=== PATIENT | female | born 1940 | race Two or more races ===

== ENCOUNTER 2018-12-25 14:07 | Inpatient (IN) | payer MEDICARE, OTHER ==
[~2018-12-25] VITALS: Ht 157.5 cm; Wt 67.6 kg
--- NOTE | 2018-12-25 14:30 | NUR ---
Medical clearance for Psych admission. PT IS AWAKE, AMB WITH WALKER, VSS, RR EVEN AND UNLABORED. NO ACUTE DISTRESS NOTED. HX LIMITED D/T PT BEING NON-VERBAL. UNDERSTANDS ALGERIAN ONLY. SHE IS ABLE TO MOVE HEAD FOR YES/NO, AND POINT. READY FOR EVAL.
--- NOTE | 2018-12-25 14:38 | NUR ---
XRAY AT BEDSIDE
[2018-12-25 14:48] LABS: BASOPHILS % (AUTO) 0.4 % (0.0-2.0); EOSINOPHILS % (AUTO) 0.8 % (0.0-6.0); HEMATOCRIT 39 % (33-45); HEMOGLOBIN 13.2 g/dL (11.5-14.8); LYMPHOCYTES # (AUTO) 1.9 /CMM (0.8-4.8); LYMPHOCYTES % (AUTO) 27.8 % (20.0-44.0); MEAN CORPUSCULAR HGB CONC 34 g/dl (31.0-36.0); MEAN CORPUSCULAR VOLUME 88 fL (82-100); MONOCYTES # (AUTO) 0.4 /CMM (0.1-1.30); MONOCYTES % (AUTO) 5.9 % (2.0-12.0); NEUTROPHILS # (AUTO) 4.4 /CMM (1.8-8.9); NEUTROPHILS % (AUTO) 65.1 % (43.0-81.0); PLATELET COUNT (AUTO) 155 /CMM (150-450); RED BLOOD CELL COUNT(AUTO) 4.46 MIL/uL (4.0-5.2); WHITE BLOOD COUNT (AUTO) 6.7 K/uL (4.3-11.0)
--- NOTE | 2018-12-25 14:58 | NUR ---
URINE OBTAINED VIA STRAIGHT CATH AND SENT TO STAT LAB
[2018-12-25 15:02] LABS: CALCIUM, SERUM 9.1 mg/dL (8.5-10.1); CARBON DIOXIDE 25 mmol/L (21-32); CHLORIDE 105 mmol/L (98-107); CREATININE 0.7 mg/dL (0.6-1.3); GLUCOSE 96 mg/dL (74-106); POTASSIUM 4.2 mmol/L (3.5-5.1); SODIUM SERUM 139 mmol/L (136-145); UREA NITROGEN, BLOOD 13 mg/dL (7-18)
[2018-12-25 15:03] LABS: APPEARANCE,URINE Clear (CLEAR); BILIRUBIN,URINE Negative (NEGATIVE); BLOOD, URINE Negative Ery/uL (NEGATIVE); COLOR,URINE Yellow (YELLOW); KETONES,URINE Negative (NEGATIVE); LEUKOCYTE ESTERASE ,URINE Small (NEGATIVE); NITRITE, URINE Negative (NEGATIVE); PH,URINE 6.5 (5.0-8.0); PROTEIN,URINE Negative (NEGATIVE); UGLUCOSE Negative (NEGATIVE); UROBILINOGEN,URINE 0.2 EU/dL (0.2)
[2018-12-25 15:08] LABS: ALANINE AMINOTRANSFERASE 41 U/L (12-78); ALBUMIN 3.8 g/dL (3.4-5.0); ALCOHOL, BLOOD < 3 mg/dL (0-0); ALKALINE PHOSPHATASE 165 U/L (46-116); ASPARTATE AMINOTRANSFERASE 19 U/L (15-37); BILIRUBIN,DIRECT 0.1 mg/dL (0.0-0.2); BILIRUBIN,TOTAL 0.6 mg/dL (0.2-1.0); TOTAL PROTEIN, SERUM 7.1 g/dL (6.4-8.2)
[2018-12-25 15:12] LABS: ACETAMINOPHEN < 10 ug/ml (10-30); SALICYLATE 1.5 mg/dL (2.8-20.0)
[2018-12-25 15:16] LABS: BACTERIA,URINE Few /HPF (None Seen); RBC,URINE 0-2 /HPF (0-2); SQUAMOUS EPITHELIAL CELL,UR Few /HPF (None Seen)
--- NOTE | 2018-12-25 15:41 | NUR ---
PT NOW VERBAL, ASKING FOR FOOD. OK PER DR TIRADO. CAN SPEAK A LITTLE KYRGYZ
--- NOTE | 2018-12-25 16:46 | NUR ---
PT APPEARS AGITATED, CONTINUES TO YELL. ATTEMPTS TO CALM HER ARE SOMEWHAT SUCCESSFUL.
--- NOTE | 2018-12-25 18:21 | NUR ---
report given to SOLE Amezcua
[2018-12-25] MEDS ORDERED: [UNRECOGNIZED DRUG - OTHER] (18:26)
[2018-12-25] MEDS ORDERED: QUET200T PO (18:26)
[2018-12-25] MEDS ORDERED: ATOR20TA PO (18:26)
[2018-12-25] MEDS ORDERED: LISI-607 PO (18:26)
[2018-12-25] MEDS ORDERED: MIRT15TA7 PO (18:26)
[2018-12-25] MEDS ORDERED: LORA2TAB PO (18:26)
[2018-12-25] MEDS ORDERED: ZOLP10TA6 PO (18:26)
[2018-12-25] MEDS ORDERED: METO25TA6 PO (18:26)
[2018-12-25] MEDS ORDERED: METF-440 PO (18:26)
--- NOTE | 2018-12-25 18:36 | NUR ---
[facility]
[2018-12-25] MEDS ORDERED: MAG HYDROX/AL HYDROX/SIMETH 30 ML UDC PO PRN (19:00)
[2018-12-25] MEDS ORDERED: MAGNESIUM HYDROXIDE 30 ML UDC PO PRN (19:00)
[2018-12-25] MEDS ORDERED: ACETAMINOPHEN 325 MG TABLET PO PRN (19:00)
--- NOTE | 2018-12-25 19:00 | NUR ---
ADMITTED THIS 78 YEARS OLD FEMALE FROM [facility] PATIENT WAS PUT ON 5150 HOLD DUE TO DANGERS TO OTHERS, PATIENT IS ALERT, ORIENTED X 1-2 DENIES ANY PAIN OR DISCOMFORT AT THIS TIME, SKIN ASSESSMENT IS DONE SKIN IS INTACT, NO OPEN WOUND NOTED PATIENT IS AMBULATORY TO BATHROOM WITH ASSIST ADVISEMENT SERVE TO THE PATIENT PATIENT REFUSED TO SIGN THE CONSENT PAPER WILL CONTINUES TO MAKE ROUND EVERY 15 MINS AND MONITOR THE PATIENT FOR SAFETY AND FALL
--- NOTE | 2018-12-25 19:02 | NUR ---
RN-CO: Dr Solano gave admitting orders for the patient.
[2018-12-25 20:00] VITALS: BP 124/101
[2018-12-25] MEDS: TEMAZEPAM 7.5 MG CAPSULE PO PRN (22:02)
[2018-12-25] MEDS: ATORVASTATIN 10 MG TABLET PO SCH (22:02)
[2018-12-26] MEDS ORDERED: INSULIN REGULAR, HUMAN 100 UNIT/ML 3 ML VIAL SQ PRN (03:30)
[2018-12-26] MEDS ORDERED: DEXTROSE 50%-WATER 50 ML DISP.SYRIN IV PRN (03:30)
[2018-12-26] MEDS ORDERED: BLOOD SUGAR DIAGNOSTIC 1 EACH STRIP IN SCH (07:30)
[2018-12-26 07:44] LABS: ALANINE AMINOTRANSFERASE 36 U/L (12-78); ALBUMIN 3.7 g/dL (3.4-5.0); ALKALINE PHOSPHATASE 164 U/L (46-116); ASPARTATE AMINOTRANSFERASE 18 U/L (15-37); BILIRUBIN,TOTAL 0.6 mg/dL (0.2-1.0); CARBON DIOXIDE 24 mmol/L (21-32); CHLORIDE 103 mmol/L (98-107); CREATININE 0.7 mg/dL (0.6-1.3); GLUCOSE 92 mg/dL (74-106); POTASSIUM 4.3 mmol/L (3.5-5.1); SODIUM SERUM 138 mmol/L (136-145); TOTAL PROTEIN, SERUM 7.2 g/dL (6.4-8.2); UREA NITROGEN, BLOOD 16 mg/dL (7-18)
[2018-12-26 07:45] LABS: CHOLESTEROL 103 mg/dL (<200); HDL CHOLESTEROL 37 mg/dL (40-60); LDL 59 mg/dL (0-99); TRIGLYCERIDES 72 mg/dL (30-150)
[2018-12-26 08:00] VITALS: BP 120/71
[2018-12-26] MEDS: METFORMIN 500 MG TABLET PO SCH ×2 (08:44→16:13)
[2018-12-26] MEDS: LISINOPRIL (5MG) 5 MG TABLET PO SCH (08:44)
[2018-12-26] MEDS: METOPROLOL TARTRATE 25 MG TABLET PO SCH ×2 (08:45→16:13)
[2018-12-26] MEDS ORDERED: MIRTAZAPINE 15 MG TABLET PO SCH (09:00)
[2018-12-26] MEDS ORDERED: CEPHALEXIN MONOHYDRATE 500 MG CAPSULE PO SCH (09:00)
[2018-12-26] MEDS ORDERED: ZOLPIDEM TARTRATE 10 MG TABLET PO SCH (09:00)
--- NOTE | 2018-12-26 11:48 | NUR ---
GPS RN NOTE: T.O. DR BROWN ORDER TO DC [facility] , ACCU CHECK ACB ONLY, ORDER PLACED AND CARED OUT.
--- NOTE | 2018-12-26 13:39 | NUR ---
SW attempted to contact pts son Sam [phone] to discuss discharge planning and collateral information. SW left voicemail for callback.
--- NOTE | 2018-12-26 13:40 | NUR ---
ISMA contacted [facility] Address: [address] [place] [address] and spoke with Dereck, store administrator who stated pt will not be able to return to the facility as pt was taken off the assisted living waiver due to frequent hospitalizations in the last year.
--- NOTE | 2018-12-26 14:03 | NUR ---
INITIAL DISCHARGE PLAN: Pt needs placement. ISMA contacted [facility] Address: [address] [place] [address] and spoke with Dereck, billing administrator who stated pt will not be able to return to the facility as pt was taken off the assisted living waiver due to frequent hospitalizations in the last year. ISMA will help form a safe and proper discharge in collaboration with .
[2018-12-26 16:00] VITALS: BP 113/55
[2018-12-26] MEDS: QUETIAPINE FUMARATE 100 MG TABLET PO SCH (17:19)
[2018-12-26 20:39] VITALS: BP 106/50
[2018-12-26] MEDS: MIRTAZAPINE 15 MG TABLET PO SCH (21:23)
[2018-12-26] MEDS: ATORVASTATIN 10 MG TABLET PO SCH (21:23)
[2018-12-26] MEDS ORDERED: ZOLPIDEM TARTRATE 10 MG TABLET PO PRN (22:00)
[2018-12-26] MEDS: TEMAZEPAM 7.5 MG CAPSULE PO PRN (22:14)
[2018-12-26 22:30] VITALS: BP 108/62
[2018-12-27] MEDS: BLOOD SUGAR DIAGNOSTIC 1 EACH STRIP IN SCH (07:37)
[2018-12-27 08:00] VITALS: BP 134/69
[2018-12-27] MEDS: METFORMIN 500 MG TABLET PO SCH ×2 (08:11→17:00)
[2018-12-27] MEDS: QUETIAPINE FUMARATE 100 MG TABLET PO SCH ×3 (08:11→17:00)
[2018-12-27] MEDS: LISINOPRIL (5MG) 5 MG TABLET PO SCH (08:11)
[2018-12-27] MEDS: METOPROLOL TARTRATE 25 MG TABLET PO SCH ×2 (08:11→18:00)
[2018-12-27] MEDS: LORAZEPAM 0.5 MG TABLET PO PRN ×2 (11:39→19:57)
[2018-12-27] MEDS ORDERED: LORAZEPAM INJ 2 MG/ML VIAL IM STA (13:32)
[2018-12-27] MEDS ORDERED: OLANZAPINE 10 MG VIAL IM STA (13:32)
[2018-12-27 16:00] VITALS: BP 106/57
[2018-12-27 19:52] VITALS: BP 110/60
--- NOTE | 2018-12-27 19:59 | NUR ---
GPS RN NOTES: PT. YELLING SCREAMING , NOT FOLLOWING ANY REDIRECTIONS ATIVAN 0.5 MG PO PRN GIVEN , WILL CONTINUE TO MONITOR.
[2018-12-27] MEDS: ATORVASTATIN 10 MG TABLET PO SCH (21:04)
[2018-12-27] MEDS: DIVALPROEX SODIUM 250 MG TABLET.DR PO SCH (21:04)
[2018-12-27] MEDS: MIRTAZAPINE 15 MG TABLET PO SCH (21:04)
[2018-12-27] MEDS: TEMAZEPAM 7.5 MG CAPSULE PO PRN (23:08)
[2018-12-28] MEDS: BLOOD SUGAR DIAGNOSTIC 1 EACH STRIP IN SCH (07:36)
[2018-12-28 08:00] VITALS: BP 94/71
[2018-12-28] MEDS: DIVALPROEX SODIUM 250 MG TABLET.DR PO SCH ×2 (08:33→21:19)
[2018-12-28] MEDS: LORAZEPAM 0.5 MG TABLET PO PRN ×2 (08:33→14:48)
[2018-12-28] MEDS: QUETIAPINE FUMARATE 100 MG TABLET PO SCH ×3 (08:34→17:10)
[2018-12-28] MEDS: LISINOPRIL (5MG) 5 MG TABLET PO SCH (08:35)
[2018-12-28] MEDS: METFORMIN 500 MG TABLET PO SCH ×2 (08:35→17:10)
[2018-12-28] MEDS: METOPROLOL TARTRATE 25 MG TABLET PO SCH ×2 (08:36→17:00)
--- NOTE | 2018-12-28 09:02 | NUR ---
SW attempted to contact pts son Sam [phone] to discuss discharge planning and collateral information. SW left voicemail for callback.
--- NOTE | 2018-12-28 14:49 | NUR ---
rn note: patient is anxious. prn ativan given.
--- NOTE | 2018-12-28 15:45 | NUR ---
ISMA received a phone call from pts owen Vargas [phone] and discussed discharge plan. ISMA informed son that [facility] was not accepting pt back. Son was aware and stated he wanted ISMA to collaborate with a child welfare caseworker at [facility] for placement. Son sated he would call ISMA tomorrow Tuesday12/29/18 to provide her with contact number.
[2018-12-28 16:00] VITALS: BP 104/60
[2018-12-28 20:00] VITALS: BP 130/59
[2018-12-28] MEDS: MIRTAZAPINE 15 MG TABLET PO SCH (21:18)
[2018-12-28] MEDS: ATORVASTATIN 10 MG TABLET PO SCH (21:18)
[2018-12-29 08:00] VITALS: BP 132/70
[2018-12-29] MEDS: BLOOD SUGAR DIAGNOSTIC 1 EACH STRIP IN SCH (08:45)
[2018-12-29] MEDS: LISINOPRIL (5MG) 5 MG TABLET PO SCH (08:46)
[2018-12-29] MEDS: LORAZEPAM 0.5 MG TABLET PO PRN ×2 (08:46→16:14)
[2018-12-29] MEDS: QUETIAPINE FUMARATE 100 MG TABLET PO SCH ×3 (08:46→16:14)
[2018-12-29] MEDS: METFORMIN 500 MG TABLET PO SCH ×2 (08:46→16:14)
[2018-12-29] MEDS: DIVALPROEX SODIUM 250 MG TABLET.DR PO SCH ×2 (08:46→20:40)
[2018-12-29] MEDS: METOPROLOL TARTRATE 25 MG TABLET PO SCH ×2 (08:47→16:15)
--- NOTE | 2018-12-29 09:52 | NUR ---
ISMA spoke with pts son Sam [phone] regarding placement options. Per son he wishes for pt to be discharged to a locked SNF in [facility] and surrounding areas. He also provided ISMA with the contact number for pts previous SW at [facility]: Nikole [phone]. ISMA will contact Nikole to request list of locked SNF's in that area.
--- NOTE | 2018-12-29 10:00 | NUR ---
ISMA contacted Nikole [phone], ISMA at [facility] and discussed placement options for pt. Nikole informed SW that pt is part of the [facility] program and directed SW to speak with pts SW Seferino Wick [phone]. Nikole explained that pt was placed on an assisted living waiver. ISMA informed her that she was notified by Lottie Deng that pt was no longer on that waiver due to her frequent hospitalizations. Nikole asked ISMA to speak with Seferino Wick as he is more familiarized with pts placement situation.
--- NOTE | 2018-12-29 10:03 | NUR ---
ISMA contacted Seferino Wick [phone] ISMA at [facility] and left voicemail requesting callback to discuss placement options for pt. ISMA informed him that pt is currently on a hold at [facility] and cannot return to [facility] due to being taken off the assisted living waiver.
--- NOTE | 2018-12-29 12:24 | NUR ---
ISMA received a phone call from Seferino Wick [phone] SW at [facility] stating he no longer works with the family and confirmed that pts assisted living waiver is no longer valid. Seferino stated that he spoke with pts son to inform him that pt will need to be placed at locked SNF. Seferino provided SW with the name of [facility] Address: [address] [place] [address] where pt may be able to be discharged to. ISMA will fax referral to [facility].
--- NOTE | 2018-12-29 12:30 | NUR ---
GPS/RN PT REFUSED ACCUCHECK FOR 1200 OFFERED X3
[2018-12-29 16:00] VITALS: BP 107/59
--- NOTE | 2018-12-29 17:40 | NUR ---
GPS/RN PT REFUSED ACCUCHECK FOR 1730 OFFERED X3
[2018-12-29 20:00] VITALS: BP 109/56
[2018-12-29] MEDS: ATORVASTATIN 10 MG TABLET PO SCH (21:00)
[2018-12-29] MEDS: MIRTAZAPINE 15 MG TABLET PO SCH (21:00)
[2018-12-30 08:00] VITALS: BP 109/59
[2018-12-30] MEDS: METOPROLOL TARTRATE 25 MG TABLET PO SCH ×2 (08:48→17:21)
[2018-12-30] MEDS: QUETIAPINE FUMARATE 100 MG TABLET PO SCH ×3 (08:48→17:20)
[2018-12-30] MEDS: BLOOD SUGAR DIAGNOSTIC 1 EACH STRIP IN SCH (08:48)
[2018-12-30] MEDS: METFORMIN 500 MG TABLET PO SCH ×2 (08:48→17:20)
[2018-12-30] MEDS: DIVALPROEX SODIUM 250 MG TABLET.DR PO SCH ×2 (08:48→21:08)
[2018-12-30] MEDS: LISINOPRIL (5MG) 5 MG TABLET PO SCH (08:49)
[2018-12-30 16:00] VITALS: BP 121/60
[2018-12-30 20:00] VITALS: BP 123/64
[2018-12-30] MEDS: MIRTAZAPINE 15 MG TABLET PO SCH (21:08)
[2018-12-30] MEDS: ATORVASTATIN 10 MG TABLET PO SCH (21:09)
[2018-12-30] MEDS: TEMAZEPAM 7.5 MG CAPSULE PO PRN (23:23)
[2018-12-31] MEDS: BLOOD SUGAR DIAGNOSTIC 1 EACH STRIP IN SCH ×2 (07:30)
--- NOTE | 2018-12-31 07:45 | NUR ---
GPS/RN GPS/RN PT REFUSED ACCUCHECK OFFERED X3. PER SITTER 1:1(KATHRYN DORADO) PT CALLED HER NAMES USING FOUL LANGUAGE
[2018-12-31 08:00] VITALS: BP 100/50
[2018-12-31] MEDS: LISINOPRIL (5MG) 5 MG TABLET PO SCH (08:34)
[2018-12-31] MEDS: METOPROLOL TARTRATE 25 MG TABLET PO SCH ×2 (08:34→17:08)
[2018-12-31] MEDS: DIVALPROEX SODIUM 250 MG TABLET.DR PO SCH ×2 (08:35→21:50)
[2018-12-31] MEDS: QUETIAPINE FUMARATE 100 MG TABLET PO SCH ×3 (08:35→17:08)
[2018-12-31] MEDS: METFORMIN 500 MG TABLET PO SCH ×2 (08:35→17:07)
[2018-12-31 16:00] VITALS: BP 122/58
[2018-12-31 20:00] VITALS: BP 150/73
[2018-12-31] MEDS: ATORVASTATIN 10 MG TABLET PO SCH (21:50)
[2018-12-31] MEDS: MIRTAZAPINE 15 MG TABLET PO SCH (21:50)
[2018-12-31] MEDS: TEMAZEPAM 7.5 MG CAPSULE PO PRN (22:41)
[2019-01-01] MEDS: BLOOD SUGAR DIAGNOSTIC 1 EACH STRIP IN SCH ×2 (07:30→08:27)
[2019-01-01 08:00] VITALS: BP 101/53
[2019-01-01] MEDS: DIVALPROEX SODIUM 250 MG TABLET.DR PO SCH ×2 (08:30→16:17)
[2019-01-01] MEDS: METFORMIN 500 MG TABLET PO SCH ×2 (08:31→16:17)
[2019-01-01] MEDS: QUETIAPINE FUMARATE 100 MG TABLET PO SCH ×3 (08:31→16:17)
[2019-01-01] MEDS: METOPROLOL TARTRATE 25 MG TABLET PO SCH ×2 (08:32→16:17)
[2019-01-01] MEDS: LISINOPRIL (5MG) 5 MG TABLET PO SCH (08:32)
--- NOTE | 2019-01-01 10:33 | NUR ---
ISMA faxed SNF referral to Carole, household coordinator at [facility] Address: [address] [place] [address] for review.
--- NOTE | 2019-01-01 10:33 | NUR ---
ISMA faxed SNF referral to Kristal, injury prevention coordinator at [facility] Address: [address] [place] [phone] for review.
--- NOTE | 2019-01-01 10:34 | NUR ---
ISMA faxed SNF referral to Sneha, services coordinator at [facility] Address: [address] [place] [address] for review.
--- NOTE | 2019-01-01 11:33 | NUR ---
SW received a phone call from Kristal, human resources benefits coordinator at [facility] Address: [address] [place] [phone] stating she will be coming on Tuesday01/02/19 to evaluate pt.
--- NOTE | 2019-01-01 11:37 | NUR ---
CHARGE NURSE DEREK INFORMED ME THAT PT WILL BE TRANSFERRED TO ROOM 204-B GPS OVERFLOW
--- NOTE | 2019-01-01 12:00 | NUR ---
MS OBSTETRICS GYNECOLOGY MD NOTE RECEIVED PT FROM GPS, ACCOMPANIED BY SOLE ALONZO. PT IS ALERT AND ORIENTED X3-4, PRIMARILY PANAMANIAN SPEAKING BUT ABLE TO MAKE BASIC NEEDS KNOWN VIA JAPANESE. PT DENIES CHEST PAIN, SOB, N/V, CHEST PAIN. PT DENIES SI AND AUDITORY HALLUCINATIONS. PT STATES SHE HAS INTERMITTENT VISUAL HALLUCINATIONS OF A "PERSON WHO WANT'S TO KILL". SHE DECLINED TO GIVE FURTHER DETAILS BUT DENIES FEELINGS OF WANT TO HARM HERSELF OR OTHERS AT THIS TIME. PT IS ON A 5250 HOLD THAT EXPIRES ON 01/11/2019 AND HAS A 1:1 SITTER PRESENT AT THE BEDSIDE. Q15 SAFETY CHECKS INITIATED PER PROTOCOL. PT IS REQUESTING TO SPEAK TO ART GALLERY DIRECTOR NISSA. WILL CALL SHORTLY. ALL BELONGINGS ACCOUNTED FOR AND PLACED IN SECURE, LOCKED CLOSET PER PROTOCOL. PT DOES HAVE A WALKER AT THE BEDSIDE FOR AMBULATION. PT DOES NOT HAVE IV ACCESS PER GPS PROTOCOL. ALL NEEDS ATTENDED TO. UNIT ORIENTATION PROVIDED INCLUDING USE OF CALL SYSTEM. BED IS LOCKED AND IN LOWEST POSITION, SIDE RAILS UP X2, CALL LIGHT AND POSSESSIONS WITHIN REACH.
--- NOTE | 2019-01-01 12:00 | NUR ---
PT TRANSFERRED TO MS2 ROOM 205 BED 1 GPS OVERFLOW WITH REPORT GIVEN TO BROCK WHIPPLE AT THIS TIME
--- NOTE | 2019-01-01 12:15 | NUR ---
MS RN CHART PATIENT ADVOCATE RUDY TOOK PHYSICAL CHARTM TO GPS UNIT TO COMPLETE CHARTING AND STATED SHE WILL RETURN SHORTLY.
--- NOTE | 2019-01-01 12:35 | NUR ---
MS RN NOTE SPOKE WITH NISSA IN COURT OFFICER, INFORMED OF PT REQUEST TO SPEAK WITH HER. PER NISSA SHE WILL ATTEMPT TO SEE PT PRIOR TO LEAVING FOR THE DAY. WILL INFORM PT.
--- NOTE | 2019-01-01 13:26 | NUR ---
RN PT OFF UNIT PT OFF UNIT TO GPS ACTIVITY ROOM. ACCOMPANIED BY QUETA DURBIN.
--- NOTE | 2019-01-01 14:02 | NUR ---
ISMA spoke with pts son Sam [phone] regarding placement options and informed him that SW referred pt to 3 nursing homes in [place] and also informed him that conference services coordinator at [facility] will be coming tomorrow Tuesday01/02/19 to assess pt. Son agreed.
--- NOTE | 2019-01-01 14:30 | NUR ---
MS WHIPPLE PT BACK ON UNIT PT BACK ON UNIT FROM GPS ACTIVITY ROOM.
--- NOTE | 2019-01-01 19:08 | NUR ---
MS RN CLOSING NOTE PT IN BED SLEEPING AND EASILY AROUSABLE. PT IS ALERT AND ORIENTED X2-3 AND PRIMARILY TAJIK SPEAKING. ABLE TO MAKE BASIC NEEDS KNOWN VIA SETSWANA. PT IS ON A 5250 HOLD THAT EXPIRES ON 01/11/19. PT DENIES SI OR THOUGHTS OF HARMING OTHERS AT THIS TIME. PT DENIES AUDITORY HALLUCINATIONS HOWEVER DID STATE THAT SHE HAS VISUAL HALLUCINATIONS OF A UNSPECIFIED PERSON "WHO WANTS TO KILL". PT DENIES COMMAND HALLUCINATIONS AT THIS TIME. NO ACUTE DISTRESS NOTED AT THIS TIME, BREATHING IS EVEN AND UNLABORED ON ROOM AIR. NO IV ACCESS PER GPS PROTOCOL. ADLS PROVIDED. 1:1 SITTER AT THE BEDSIDE FOR SAFETY. ALL NEEDS ATTENDED TO. BED IS LOCKED AND IN LOWEST POSITION, SIDE RAILS UP X2, CALL LIGHT AND POSSESSIONS WITHIN REACH. WILL ENDORSE TO GENERATOR WORKER NURSE FOR CONTINUITY OF CARE.
--- NOTE | 2019-01-01 19:20 | NUR ---
MS RN OPENING NOTES: RECEIVED PT ON ROOM AIR AND IS TOLERATING WELL. NO SOB NOTED. NO S/S OF DISTRESS. PT IS EGYPTIAN SPEAKING ONLY. SITTER AT BEDSIDE. NO IV NOTED PER PROTOCOL. BED KEPT IN LOW, LOCKED POSITION, AND SIDE RAILS X 2UP. WILL CONTINUE TO MONITOR PT. Addendum: 01/01/19 at 2230 by MARIANN CARRILLO RN RN OPENING NOTES
[2019-01-01 20:00] VITALS: BP 118/62
[2019-01-01] MEDS: MIRTAZAPINE 15 MG TABLET PO SCH (22:29)
[2019-01-01] MEDS: ATORVASTATIN 10 MG TABLET PO SCH (22:29)
--- NOTE | 2019-01-01 22:29 | NUR ---
MS WHIPPLE NOTES: UPON ADMINISTERING LIPITOR 20MG AND REMERON 15MG, PT REFUSED AT THIS TIME AND SAID "LATER." WILL HOLD ONTO PILLS FOR NOW AND ATTEMPT TO ADMINISTER AT A LATER TIME. Addendum: 01/01/19 at 2230 by MARIANN CARRILLO RN SOLE NOTES
--- NOTE | 2019-01-02 00:31 | NUR ---
MS RN NOTES: PT ADAMANT ABOUT HAVING BED RAILS DOWN. SITTER AT BEDSIDE. EXPLAINED TO PT RISKS OF HAVING SIDE RAILS DOWN AND PT IS AWARE. PT STILL REFUSING. ALSO, OFFERED HER LIPITOR 20MG AND REMERON 15MG, PT SAID "LATER, NOT NOW." WILL ATTEMPT AT ANOTHER TIME.
--- NOTE | 2019-01-02 03:07 | NUR ---
MS RN NOTES: PT TOOK LIPITOR 20MG AND REMERON 15MG AFTER ASKING FOR ORANGE JUICE.
[2019-01-02] MEDS: BLOOD SUGAR DIAGNOSTIC 1 EACH STRIP IN SCH ×2 (06:09)
--- NOTE | 2019-01-02 06:40 | NUR ---
RN CLOSING NOTES: ALL NEEDS WERE ATTENDED AND ANTICIPATED FOR. PT KEPT CLEAN, DRY, AND COMFORTABLE. PT ON ROOM AIR TOLERATING WELL. PT DENIES ANY SI. PT REFUSING TO HAVE SIDE RAILS UP SHE GETS AGITATED. NO IV NOTED PER MD CONTROL. BLOOD SUGAR THIS AM WAS 104. BED KEPT IN LOW, AND LOCKED POSITION. SITTER REMAINS AT BEDSIDE. WILL ENDORSE TO AM NURSE FOR MIRNA.
--- NOTE | 2019-01-02 07:41 | NUR ---
MS/RN OPENING NOTE PATIENT IN BED IN STABLE CONDITION. A/O X 2-3, QATARI SPEAKING. NO SIGNS OF ACUTE DISTRESS. NO COMPLAIN OF PAIN OR DISCOMFORT. 1:1 SITTER AT BEDSIDE, CALL LIGHT WITHIN REACH. ALL NEEDS ATTENDED. WILL CONTINUE TO MONITOR TO ENSURE SAFETY.
[2019-01-02] MEDS: QUETIAPINE FUMARATE 100 MG TABLET PO SCH ×3 (08:46→16:25)
[2019-01-02] MEDS: LISINOPRIL (5MG) 5 MG TABLET PO SCH (08:46)
[2019-01-02] MEDS: DIVALPROEX SODIUM 250 MG TABLET.DR PO SCH ×3 (08:47→16:25)
[2019-01-02] MEDS: METOPROLOL TARTRATE 25 MG TABLET PO SCH ×2 (08:47→16:25)
[2019-01-02] MEDS: METFORMIN 500 MG TABLET PO SCH ×2 (08:47→16:25)
[2019-01-02 09:00] VITALS: BP 136/71
--- NOTE | 2019-01-02 09:51 | NUR ---
SW contacted Sneha, sourcing coordinator at [facility] Address: [address] [place] [address] who stated pt has been accepted to the facility.
[2019-01-02 16:35] VITALS: BP 98/56
--- NOTE | 2019-01-02 18:10 | NUR ---
MS/RN CLOSING NOTE PATIENT IN BED IN STABLE CONDITION. A/O X 2-3, MALDIVIAN SPEAKING. NO SIGNS OF ACUTE DISTRESS. NO COMPLAIN OF PAIN OR DISCOMFORT. ALL NEEDS ATTENDED TO. CALL LIGHT WITHIN REACH. 1:1 SITTER AT BEDSIDE. WILL ENDORSE TO NEXT SHIFT FOR CONTINUITY OF CARE.
--- NOTE | 2019-01-02 19:20 | NUR ---
RN OPENING NOTES: RECEIVED PT ON ROOM AIR AND IS TOLERATING WELL. PT GREENLANDIC SPEAKING ONLY. NO SOB NOTED. NO S/S OF DISTRESS. SITTER AT BEDSIDE. PT REFUSES TO HAVE SIDE RAILS PUT UP. EXPLAINED TO PT RISKS OF HAVING THEM DOWN. PT STILL REFUSING. NO IV NOTED PER PROTOCOL. BED KEPT IN LOW, LOCKED POSITION, AND SIDE RAILS X 2UP. WILL CONTINUE TO MONITOR PT.
[2019-01-02 20:00] VITALS: BP 105/51
[2019-01-02] MEDS: ATORVASTATIN 10 MG TABLET PO SCH (21:30)
[2019-01-02] MEDS: MIRTAZAPINE 15 MG TABLET PO SCH (21:30)
--- NOTE | 2019-01-03 05:29 | NUR ---
RN NOTES PT MOVED TO GPS VIA WHEELCHAIR WITH SECRET SERVICE AGENT TO ROOM 216B IN STABLE CONDITION. ALL BELONGINGS AND CHART SENT WITH PT.
--- NOTE | 2019-01-03 05:35 | NUR ---
RN NOTES: PT LEFT IN STABLE CONDITION WITH SITTER. ALL BELONGINGS TAKEN WITH WELL. ENDORSED TO RECEIVING NURSE.
[2019-01-03] MEDS: BLOOD SUGAR DIAGNOSTIC 1 EACH STRIP IN SCH ×2 (07:30)
[2019-01-03 08:00] VITALS: BP 110/66
[2019-01-03] MEDS: METFORMIN 500 MG TABLET PO SCH ×2 (08:25→16:46)
[2019-01-03] MEDS: METOPROLOL TARTRATE 25 MG TABLET PO SCH ×2 (08:26→16:46)
[2019-01-03] MEDS: QUETIAPINE FUMARATE 100 MG TABLET PO SCH ×3 (08:26→16:45)
[2019-01-03] MEDS: DIVALPROEX SODIUM 250 MG TABLET.DR PO SCH ×3 (08:26→16:45)
[2019-01-03] MEDS: LISINOPRIL (5MG) 5 MG TABLET PO SCH (08:26)
--- NOTE | 2019-01-03 09:52 | NUR ---
spoke with pts son Sam [phone] regarding placement options and informed him pt has been accepted to [facility] and also informed him Dang Shaw will be coming on this present day to assess pt. ISMA also informed son that pt has a discharge date for 01/04/19 or Tuesday01/04/19. ISMA will contact pts son once ISMA meets with [facility] and contacts son to let him know if facility has accepted pt so he can decide what facility is more appropriate for pt.
--- NOTE | 2019-01-03 14:09 | NUR ---
ISMA spoke with pts son Sam [phone] regarding placement options and informed him pt has been accepted to [facility] and will be discharging tomorrow 01/04/19. Son agreed with discharge plan.
[2019-01-03 16:00] VITALS: BP 103/50
[2019-01-03 20:31] VITALS: BP 102/52
[2019-01-03] MEDS: MIRTAZAPINE 15 MG TABLET PO SCH (21:32)
[2019-01-03] MEDS: ATORVASTATIN 10 MG TABLET PO SCH (21:33)
[2019-01-03] MEDS: TEMAZEPAM 7.5 MG CAPSULE PO PRN (21:33)
[2019-01-04] MEDS: BLOOD SUGAR DIAGNOSTIC 1 EACH STRIP IN SCH ×2 (07:36→07:39)
[2019-01-04 08:00] VITALS: BP 101/61
[2019-01-04] MEDS: METFORMIN 500 MG TABLET PO SCH (08:42)
[2019-01-04] MEDS: DIVALPROEX SODIUM 250 MG TABLET.DR PO SCH (08:43)
[2019-01-04 08:44] VITALS: BP 101/61
[2019-01-04] MEDS: LISINOPRIL (5MG) 5 MG TABLET PO SCH (08:44)
[2019-01-04] MEDS: QUETIAPINE FUMARATE 100 MG TABLET PO SCH (08:44)
[2019-01-04] MEDS: METOPROLOL TARTRATE 25 MG TABLET PO SCH (08:44)
--- NOTE | 2019-01-04 09:55 | NUR ---
DR. BURT GAVE AN ORDER TO D/C VIRAL AND F/C TO [facility], TO CONTINUE SAME MEDS INCLUDING PRN AND TO FOLLOW UP WITH PSYCH AND MEDICAL DOCTORS. Addendum: 01/04/19 at 1007 by TAVARES ECHAVARRIA RN PT. IS FOR DISCHARGE TO [facility].
--- NOTE | 2019-01-04 12:15 | NUR ---
GPS/RN-NOTES PATIENT DISCHARGE TO [facility] TODAY. DR. BURT AND DR. MOONEY AWARE AND AGREES OF PATIENT DISCHARGE WITH ORDERS.PATIENT DID NOT VERBALIZE SI/HI,DENIES VISUAL/AUDITORY HALLUCINATIONS AT THE TIME OF DISCHARGE. REPORT WAS GIVEN TO DONN( HELICOPTER ENGINEER). PATIENT LEFT THE UNIT WITH ALL BELONGINGS INCLUDING X1 CELLPHONE WITH DIRECTOR OF CORPORATE RESPONSIBILITY , X1 WALKER AND OTHER BELONGINGS IN STABLE CONDITION ,PATIENT ALERT ORIENTED X3 AMBULATORY USING WALKER. PATIENT WAS VICE PRESIDENT CONSULTING SERVICES BY AMBULANCE VIA GURNEY WITH TWO STAFF ASSIST. PER ISMA PTJazmin NUNO WAS MADE AWARE OF THE DISCHARGE.
--- NOTE | 2019-01-04 13:39 | NUR ---
DISCHARGE NOTE: Pt was discharged at 12:15pm via [id number] [place] [facility] Address: [address] [place] [address] . Pts son Sam [phone] has been notified and agreed with discharge plan. Pts mood appeared euthymic with congruent affect. Pt denied visual/auditory hallucinations and denied suicidal/homicidal ideations. Pt will be under the care of Psychiatrist: Dr. Rhonda Fontaine Address: [address] [facility] [address] [address] and Slps: Dr. Precious Son [address] [facility] [address], [place] [address] [phone]. The multidisciplinary exitcare form was done, printed, signed, and given to the patient.
== END 2019-01-04 12:15 | DRG 885 ==
LOC: ER 14:07 → GPS 18:08 → GPSOV2 01-01 12:03 → GPS 01-03 06:13
PROVIDERS: ADMIT Psychiatry & Neurology Psychiatry; ATTEND Psychiatry & Neurology Psychiatry
DX: F39 Unspecified mood [affective] disorder (principal); N39.0 Urinary tract infection, site not specified; F23 Brief psychotic disorder; E11.9 Type 2 diabetes mellitus without complications; E78.5 Hyperlipidemia, unspecified; I10 Essential (primary) hypertension; F33.3 Major depressive disorder, recurrent, severe with psychotic symptoms
CPT/HCPCS: 36415; 71045-TC; 80048-TC; 80053-TC; 80061-TC; 80076-TC; 80164-TC; 80305; 81000-TC; 82962-TC; 84484-TC; 85025-TC; 87081-TC; G0480; J1815; J2060; J3490; J7030

== ENCOUNTER 2019-10-01 12:42 | Inpatient (IN) | payer MEDICARE, MEDICAID ==
[~2019-10-01] VITALS: Ht 157.5 cm; Wt 61.2 kg
[~2019-10-01 12:42] MED LIST: ATOR20TA PO; LISI-607 PO; LORA2TAB PO; METO25TA6 PO; MIRT15TA7 PO; QUET200T PO; ZOLP10TA6 PO; [UNRECOGNIZED DRUG - OTHER]
--- NOTE | 2019-10-01 13:02 | NUR ---
TEVIN, FROM [facility], DANGER TO SELF, INCREASE DELUSIONAL THOUGHTS. ON ROOM AIR, BREATHING EVENLY AND UNLABORED. SITTER AT BEDSIDE FOR CONSTANT MONITORING. WILL CONTINUE TO MONITOR ACCORDINGLY.
[2019-10-01 13:13] LABS: BASOPHILS % (AUTO) 0.4 % (0.0-2.0); EOSINOPHILS % (AUTO) 1.3 % (0.0-6.0); HEMATOCRIT 40 % (33-45); HEMOGLOBIN 13.1 g/dL (11.5-14.8); LYMPHOCYTES # (AUTO) 2.1 /CMM (0.8-4.8); LYMPHOCYTES % (AUTO) 39.2 % (20.0-44.0); MEAN CORPUSCULAR HGB CONC 33 g/dl (31.0-36.0); MEAN CORPUSCULAR VOLUME 90 fL (82-100); MONOCYTES # (AUTO) 0.3 /CMM (0.1-1.30); MONOCYTES % (AUTO) 5.4 % (2.0-12.0); NEUTROPHILS # (AUTO) 2.9 /CMM (1.8-8.9); NEUTROPHILS % (AUTO) 53.7 % (43.0-81.0); PLATELET COUNT (AUTO) 121 /CMM (150-450); RED BLOOD CELL COUNT(AUTO) 4.37 MIL/uL (4.0-5.2); WHITE BLOOD COUNT (AUTO) 5.4 K/uL (4.3-11.0)
[2019-10-01 13:21] LABS: CARBON DIOXIDE 26 mmol/L (21-32); CHLORIDE 105 mmol/L (98-107); CREATININE 0.7 mg/dL (0.6-1.3); GLUCOSE 96 mg/dL (74-106); POTASSIUM 4.3 mmol/L (3.5-5.1); SODIUM SERUM 138 mmol/L (136-145); UREA NITROGEN, BLOOD 16 mg/dL (7-18)
[2019-10-01 13:27] LABS: ACETAMINOPHEN 0 ug/ml (10-30); ALANINE AMINOTRANSFERASE 15 U/L (12-78); ALBUMIN 3.9 g/dL (3.4-5.0); ALCOHOL, BLOOD < 3 mg/dL (0-0); ALKALINE PHOSPHATASE 97 U/L (46-116); ASPARTATE AMINOTRANSFERASE 15 U/L (15-37); BILIRUBIN,DIRECT 0.1 mg/dL (0.0-0.2); BILIRUBIN,TOTAL 0.5 mg/dL (0.2-1.0); SALICYLATE 1.8 mg/dL (2.8-20.0); TOTAL PROTEIN, SERUM 7.3 g/dL (6.4-8.2)
[2019-10-01 13:44] LABS: LIPASE 56 U/L (73-393)
[2019-10-01] MEDS ORDERED: BUSP15TA3 PO (13:50)
[2019-10-01] MEDS ORDERED: PALI234D IM (13:50)
[2019-10-01] MEDS ORDERED: ATOR40TA PO (13:50)
[2019-10-01] MEDS ORDERED: NA P133E RC (13:50)
[2019-10-01] MEDS ORDERED: MAGN400O6 PO (13:50)
[2019-10-01] MEDS ORDERED: DIVA500T2 PO (13:50)
[2019-10-01] MEDS ORDERED: FLUO40CA8 PO (13:50)
[2019-10-01] MEDS ORDERED: OLAN2.5T3 PO (13:50)
[2019-10-01] MEDS ORDERED: LACT10SO PO (13:50)
[2019-10-01] MEDS ORDERED: ACET-868 PO (13:50)
[2019-10-01] MEDS ORDERED: BISA10SU11 RC (13:50)
[2019-10-01] MEDS ORDERED: MULT-1168 PO (13:50)
--- NOTE | 2019-10-01 13:50 | NUR ---
Urine collected and sent to lab.
[2019-10-01] MEDS ORDERED: LACT-58 PO (13:53)
[2019-10-01] MEDS ORDERED: METF-440 PO (13:54)
[2019-10-01 14:02] LABS: APPEARANCE,URINE Clear (CLEAR); BILIRUBIN,URINE Negative (NEGATIVE); BLOOD, URINE Negative Ery/uL (NEGATIVE); COLOR,URINE Yellow (YELLOW); KETONES,URINE Negative (NEGATIVE); LEUKOCYTE ESTERASE ,URINE Negative (NEGATIVE); NITRITE, URINE Negative (NEGATIVE); PROTEIN,URINE Negative (NEGATIVE); UGLUCOSE Negative (NEGATIVE); UROBILINOGEN,URINE 0.2 EU/dL (0.2)
--- NOTE | 2019-10-01 14:32 | NUR ---
ART CAPILLA ETA 1HR
--- NOTE | 2019-10-01 15:29 | NUR ---
ROOM ASSIGNED 218B
--- NOTE | 2019-10-01 15:36 | NUR ---
Called GPS and spoke to Yamila WHIPPLE and report given.
--- NOTE | 2019-10-01 16:13 | NUR ---
wheeled patient via gurney accompanied by RN and emt in no distress.
[2019-10-01] MEDS ORDERED: ZOLPIDEM TARTRATE 5 MG TABLET PO PRN (18:30)
[2019-10-01] MEDS ORDERED: ACETAMINOPHEN 325 MG TABLET PO PRN (18:30)
[2019-10-01] MEDS ORDERED: LORAZEPAM 0.5 MG TABLET PO PRN (18:30)
[2019-10-01] MEDS ORDERED: BLOOD SUGAR DIAGNOSTIC 1 EACH STRIP IN ONE (18:30)
[2019-10-01 18:53] VITALS: BP 122/61
--- NOTE | 2019-10-01 19:27 | NUR ---
DIALYSIS TECHNICIAN NOTE: PATIENT ADMITTED TO [facility] AT 1600 BY AMBULANCE. PATIENT IS ON A 5150 HOLD FOR GD. PER HOLD, "PT KNOWS HER NAME, BUT OTHERWISE IS CONFUSED AND DISORGANIZED. POOR HISTORIAN AND DOES NOT KNOW WHY SHE IS HERE. HEARING VOICES BUT NOT SURE WHAT THEY SAY. DEPRESSED AND AGITATED. IMPAIRED JUDGEMENT, POOR INSIGHT AND IMPULSE CONTROL. [facility] UNABLE TO PROVIDE FOR HER CARE DUE TO PATIENT'S BEHAVIOR AND PT NOT ABLE TO PROVIDE FOR HER FOOD, CORRECTION OR CLOTHING DUE TO HER MENTAL STATUS." UPON FACE TO FACE ASSESSMENT, PATIENT IS A+OX2, DEPRESSED, ISOLATIVE, FEARFUL, WORRIED, ANXIOUS, FLAT AFFECT, CLEAR SPEECH, WELL GROOMED, COOPERATIVE WITH PLAN OF CARE. PT ADMITS TO AUDITORY HALLUCINATIONS (LAUGHTER AND CRYING) AUDITORY HALLUCINATIONS TELLING PT TO HURT HERSELF. PT UNABLE TO ID HOW. PT VOICES +SUICIDAL IDEATION WITHOUT PLAN. WILL CONTRACT FOR SAFETY. DENIES VH/HI AT PRESENT TIME. VSS. CONTACTED DR INGRAM AND NELSY ABOUT ADMISSION AND TO REVIEW MED RECON. CONTACTED SON TO INFORM OF ADMISSION. NKA. ADMITTING CONSENTS SIGNED. GAVE PATIENT'S RIGHTS HANDBOOK WITH GUIDE TO PRESCRIPTIONS. SKIN INTACT AND CLEAR. WILL MONITOR PATIENT Q15 MINUTES FOR SAFETY AND BEHAVIOR PER GPS PROTOCOL. Addendum: 10/01/19 at 1935 by DANIELA BAILEY RN INFORMED SOLE WELLS TO ADMINISTER PRN FOR CONSTIPATION, EYE DROPS AND TO ASK MD ABOUT POSSIBLE HGBA1C LEVELS.
[2019-10-01 19:52] VITALS: BP 104/48
[2019-10-01] MEDS ORDERED: BISACODYL SUPP (10 MG) 10 MG/SUPP.RECT SUPP.RECT RC PRN (21:30)
[2019-10-01] MEDS ORDERED: MAGNESIUM HYDROXIDE 30 ML UDC PO PRN (21:30)
[2019-10-01] MEDS ORDERED: LACTULOSE 10 G/15 ML UDC (PYXIS) PO PRN (21:30)
[2019-10-01] MEDS: MAGNESIUM HYDROXIDE 30 ML UDC PO PRN (21:52)
[2019-10-01] MEDS: ATORVASTATIN 40 MG TABLET PO SCH (21:53)
[2019-10-01 22:00] VITALS: BP 123/60
--- NOTE | 2019-10-02 05:45 | NUR ---
RN NOTES: PT. RESTING COMFORTABLY IN HER ROOM, NO ACUTE DISTRESS DISTRESS NOTED , NO BEHAVIOUR PROBLEM NOTED AT THIS TIME , WILL CONTINUE TO MONITOR.
[2019-10-02 07:06] LABS: CHOLESTEROL 80 mg/dL (<200); HDL CHOLESTEROL 36 mg/dL (40-60); LDL 38 mg/dL (0-99); TRIGLYCERIDES 39 mg/dL (30-150)
[2019-10-02 07:11] LABS: ALBUMIN 3.4 g/dL (3.4-5.0); BILIRUBIN,TOTAL 0.6 mg/dL (0.2-1.0); CALCIUM, SERUM 8.6 mg/dL (8.5-10.1); CREATININE 0.7 mg/dL (0.6-1.3); POTASSIUM 4.5 mmol/L (3.5-5.1); TOTAL PROTEIN, SERUM 6.7 g/dL (6.4-8.2)
--- NOTE | 2019-10-02 07:17 | NUR ---
RN NOTES: MOM WAS GIVEN AT NIGHT , PT. DENIES ANY DISCOMFORT, NO BM REPORTED, ENDORSE TO DAY NURSE ROSS TO FOLLOW UP, AND CONTINUITY OF CARE.
[2019-10-02 08:00] VITALS: BP 111/61
[2019-10-02] MEDS: MULTIVITAMINS,THERAGRAN 1 UDTAB TABLET PO SCH (08:15)
[2019-10-02] MEDS: METFORMIN 500 MG TABLET PO SCH ×2 (08:15→17:16)
[2019-10-02] MEDS: ENSURE ENLIVE 237 ML LIQUID (VANILLA) PO SCH ×2 (08:18→17:16)
[2019-10-02] MEDS: VENLAFAXINE XR 75 MG CAP.SR.24H PO SCH (10:23)
[2019-10-02] MEDS: risperiDONE 1 MG TABLET PO SCH ×2 (10:23→17:16)
--- NOTE | 2019-10-02 11:23 | NUR ---
SW contacted pts son Sam [phone] for collateral information and discharge planning. Per son, he wishes for pt to return back to [facility].
--- NOTE | 2019-10-02 12:00 | NUR ---
SW contacted YESY, charter coordinator at [facility] [address] [place], [address] who stated DON is not taking pt back as she is an elopement risk.
--- NOTE | 2019-10-02 12:03 | NUR ---
ISMA contacted pts son Sam [phone] to inform him that pt does not want to return to [facility] as she reported that she does not like that the facility is a smoking facility and that it smells like cigarettes which makes it hard for her to breathe. ISMA also informed son that the facility is not taking pt back as she an elopement risk. Son understood, ISAM informed him that ISMA is able to refer pt to a different SNF that her current psychiatrist Dr. Sandy goes to, pt son agreed to referring pt elsewhere.
[2019-10-02] MEDS: DIVALPROEX SODIUM 125 MG CAP.SPRINK PO SCH ×3 (12:08→21:36)
[2019-10-02] MEDS: LORAZEPAM 0.5 MG TABLET PO PRN ×2 (13:14→21:37)
--- NOTE | 2019-10-02 14:30 | NUR ---
INITIAL DISCHARGE PLAN: Per pt she does not want to return to [facility] (SNF) [address] [place] [place], [address] . ISMA contacted . camp coordinator who stated that DON is not accepting pt back due to her high elopement risk. ISMA spoke with pts owen Vargas [phone] and informed him of placement issue and agreed for SW to refer to a different SNF. ISMA will help form a safe and proper discharge plan in collaboration with .
[2019-10-02 15:57] VITALS: BP 101/58
[2019-10-02 20:11] VITALS: BP 116/54
[2019-10-02] MEDS: ATORVASTATIN 40 MG TABLET PO SCH (21:36)
[2019-10-02] MEDS: TRAZODONE 50 MG TABLET PO SCH (21:37)
[2019-10-03 08:00] VITALS: BP 107/61
[2019-10-03] MEDS: MULTIVITAMINS,THERAGRAN 1 UDTAB TABLET PO SCH (08:17)
[2019-10-03] MEDS: risperiDONE 1 MG TABLET PO SCH ×2 (08:17→16:37)
[2019-10-03] MEDS: METFORMIN 500 MG TABLET PO SCH ×2 (08:17→16:37)
[2019-10-03] MEDS: DIVALPROEX SODIUM 125 MG CAP.SPRINK PO SCH ×4 (08:17→21:35)
[2019-10-03] MEDS: VENLAFAXINE XR 75 MG CAP.SR.24H PO SCH (08:35)
[2019-10-03] MEDS: ENSURE ENLIVE 237 ML LIQUID (VANILLA) PO SCH ×2 (08:35→16:37)
[2019-10-03] MEDS: ACETAMINOPHEN 325 MG TABLET PO PRN (15:01)
--- NOTE | 2019-10-03 15:02 | NUR ---
RN NOTE- PT C/O MILD HEADACHE. VS TAKEN HR B/P WNL FOR PT. TYLENOL 650 MG GIVEN.
[2019-10-03 16:00] VITALS: BP 130/62
[2019-10-03 20:13] VITALS: BP 106/50
[2019-10-03] MEDS: ATORVASTATIN 40 MG TABLET PO SCH (21:35)
[2019-10-03] MEDS: TRAZODONE 50 MG TABLET PO SCH (21:35)
[2019-10-04] MEDS: ACETAMINOPHEN 325 MG TABLET PO PRN ×2 (03:36→13:37)
--- NOTE | 2019-10-04 03:40 | NUR ---
GPS RN NOTE: PT C/O MILD HEADACHE. VS TAKEN HR B/P WNL FOR PT. TYLENOL 650 MG GIVEN. PT TOLERATED WELL CONTINUE TO MONITOR
[2019-10-04 08:00] VITALS: BP 96/51
[2019-10-04] MEDS: DIVALPROEX SODIUM 125 MG CAP.SPRINK PO SCH ×4 (08:21→21:10)
[2019-10-04] MEDS: MULTIVITAMINS,THERAGRAN 1 UDTAB TABLET PO SCH (08:21)
[2019-10-04] MEDS: VENLAFAXINE XR 75 MG CAP.SR.24H PO SCH (08:21)
[2019-10-04] MEDS: risperiDONE 1 MG TABLET PO SCH ×2 (08:21→16:06)
[2019-10-04] MEDS: METFORMIN 500 MG TABLET PO SCH ×2 (08:21→16:06)
[2019-10-04] MEDS: ENSURE ENLIVE 237 ML LIQUID (VANILLA) PO SCH ×2 (08:22→16:06)
--- NOTE | 2019-10-04 11:53 | NUR ---
ISMA FAXED SNF REFERRAL TO Anna Haider craft coordinator at [facility] Address: [address] [facility] [facility], [place] [address] for review.
[2019-10-04 16:00] VITALS: BP 127/63
[2019-10-04] MEDS: LORAZEPAM 0.5 MG TABLET PO PRN (19:58)
[2019-10-04] MEDS: MAG HYDROX/AL HYDROX/SIMETH 30 ML UDC PO PRN (20:12)
[2019-10-04 20:30] VITALS: BP 143/43
[2019-10-04] MEDS ORDERED: ONDANSETRON HCL 4 MG/5 ML SOLUTION PO PRN (21:00)
[2019-10-04] MEDS: FLUTICASONE PROPIONATE 16 GM BOTTLE NS PRN (21:02)
[2019-10-04] MEDS: ONDANSETRON 4 MG TAB.RAPDIS PO PRN (21:09)
[2019-10-04] MEDS: ATORVASTATIN 40 MG TABLET PO SCH (21:10)
[2019-10-04] MEDS: TRAZODONE 50 MG TABLET PO SCH (21:10)
--- NOTE | 2019-10-04 21:36 | NUR ---
GPS RN NOTE: PATIENT AWAKE, ANXIOUS, COOPERATIVE, DEPRESSED MOOD, MED COMPLIANT, C/O FEELING NAUSEATED, UPSET STOMACH, STUFFY NOSE AND PATIENT IS DROOLING SALIVA WHILE HOLDING THE CONTAINER. MAALOX GIVEN ORDERED FOR UPSET STOMACH, ATIVAN GIVEN ORDERED FOR VERBALIZATION OF ANXIETY AND NERVOUSNESS. NOTIFIED [employer] WIREMAN ETHAN WITH ORDERS RECEIVED NOTED AND CARRIED OUT. FLONASE SPRAY GIVEN FOR STUFFY NOSE AND ZOFRAN 4MG GIVEN FOR NAUSEA ORDERED. CRACKERS SNACKS GIVEN. PATIENT STATED THAT SHE FEELS A LITTLE BIT BETTER AFTER. PATIENT APPRECIATED. WILL CONTINUE TO MONITOR Q15 MINS FOR SAFETY
[2019-10-05 08:00] VITALS: BP 107/51
[2019-10-05] MEDS: DIVALPROEX SODIUM 125 MG CAP.SPRINK PO SCH ×4 (08:46→16:11)
[2019-10-05] MEDS: risperiDONE 1 MG TABLET PO SCH ×2 (08:46→16:11)
[2019-10-05] MEDS: FLUOXETINE HCL 20 MG CAPSULE PO SCH (08:46)
[2019-10-05] MEDS: METFORMIN 500 MG TABLET PO SCH ×2 (08:46→16:11)
[2019-10-05] MEDS: MULTIVITAMINS,THERAGRAN 1 UDTAB TABLET PO SCH (08:46)
[2019-10-05] MEDS: ENSURE ENLIVE 237 ML LIQUID (VANILLA) PO SCH ×2 (08:47→18:42)
[2019-10-05] MEDS: FLUTICASONE PROPIONATE 16 GM BOTTLE NS PRN (09:03)
--- NOTE | 2019-10-05 09:17 | NUR ---
FAMILY CONTACT: SW contacted pts son Sam [phone] and left a voicemail for callback.
[2019-10-05 16:00] VITALS: BP 101/50
[2019-10-05 20:16] VITALS: BP 109/60
[2019-10-05] MEDS: ATORVASTATIN 40 MG TABLET PO SCH (21:33)
[2019-10-05] MEDS: TRAZODONE 50 MG TABLET PO SCH (21:33)
--- NOTE | 2019-10-06 07:11 | NUR ---
RN NOTES: PT. RESTING IN HER ROOM , NO ACUTE DISTRESS NOTED, NO BEHAVIOUR PROBLEMS NOTED, THROUGH OUT SHIFT , ENDORSE TO DAY NURSE FOR CONTINUITY OF CARE .
[2019-10-06 08:00] VITALS: BP 100/65
[2019-10-06] MEDS: ENSURE ENLIVE 237 ML LIQUID (VANILLA) PO SCH ×2 (08:01→17:16)
[2019-10-06] MEDS: FLUOXETINE HCL 20 MG CAPSULE PO SCH (08:01)
[2019-10-06] MEDS: MULTIVITAMINS,THERAGRAN 1 UDTAB TABLET PO SCH (08:01)
[2019-10-06] MEDS: METFORMIN 500 MG TABLET PO SCH ×2 (08:01→17:17)
[2019-10-06] MEDS: risperiDONE 1 MG TABLET PO SCH ×2 (08:01→17:17)
[2019-10-06] MEDS: DIVALPROEX SODIUM 125 MG CAP.SPRINK PO SCH ×3 (08:01→17:16)
[2019-10-06 16:00] VITALS: BP 157/76
--- NOTE | 2019-10-06 19:15 | NUR ---
GPS/RN NOTE: PATIENT IN BED AWAKE, ALERT AND ORIENTED X2, NOT IN ANY FORM OF DISTRESS. SAFETY PRECAUTIONS IMPLEMENTED. WILL CONTINUE TO MONITOR PT'S SAFETY AND BEHAVIOR.
[2019-10-06] MEDS: LORAZEPAM 0.5 MG TABLET PO PRN (19:45)
[2019-10-06 20:36] VITALS: BP 174/79
[2019-10-06] MEDS: ATORVASTATIN 40 MG TABLET PO SCH (21:18)
[2019-10-06] MEDS: TRAZODONE 50 MG TABLET PO SCH (21:18)
[2019-10-06 21:40] VITALS: BP 159/69
[2019-10-06 22:30] VITALS: BP 144/89
[2019-10-06] MEDS: ACETAMINOPHEN 325 MG TABLET PO PRN (23:20)
[2019-10-07 08:00] VITALS: BP 104/63
[2019-10-07] MEDS: DIVALPROEX SODIUM 125 MG CAP.SPRINK PO SCH ×3 (08:21→16:21)
[2019-10-07] MEDS: MULTIVITAMINS,THERAGRAN 1 UDTAB TABLET PO SCH (08:21)
[2019-10-07] MEDS: METFORMIN 500 MG TABLET PO SCH ×2 (08:21→16:21)
[2019-10-07] MEDS: risperiDONE 1 MG TABLET PO SCH ×2 (08:21→16:21)
[2019-10-07] MEDS: ENSURE ENLIVE 237 ML LIQUID (VANILLA) PO SCH ×2 (08:21→16:21)
[2019-10-07 16:00] VITALS: BP 109/66
[2019-10-07] MEDS: TRAZODONE 50 MG TABLET PO SCH (21:23)
[2019-10-07] MEDS: ATORVASTATIN 40 MG TABLET PO SCH (21:23)
[2019-10-08 08:00] VITALS: BP 115/60
[2019-10-08] MEDS: risperiDONE 1 MG TABLET PO SCH ×2 (08:14→17:09)
[2019-10-08] MEDS: MULTIVITAMINS,THERAGRAN 1 UDTAB TABLET PO SCH (08:14)
[2019-10-08] MEDS: DIVALPROEX SODIUM 125 MG CAP.SPRINK PO SCH ×4 (08:14→20:10)
[2019-10-08] MEDS: METFORMIN 500 MG TABLET PO SCH ×2 (08:15→17:09)
[2019-10-08] MEDS: ENSURE ENLIVE 237 ML LIQUID (VANILLA) PO SCH ×2 (08:15→17:09)
[2019-10-08] MEDS: LORAZEPAM 0.5 MG TABLET PO PRN (10:23)
--- NOTE | 2019-10-08 10:24 | NUR ---
RN NOTE- PT W AGITATION. PRN ATIVAN GIVEN
--- NOTE | 2019-10-08 11:53 | NUR ---
SNF: SW received a call from Anna Haider, web marketing coordinator at [facility] Address: [address] [facility] [place] [address] stating pt has been accepted and before discharge is requesting updated clinicals. ISMA informed her that as of today there is no discharge order and will update her once psychiatrist orders discharge.
--- NOTE | 2019-10-08 15:00 | NUR ---
FAMILY CONTACT: SW contacted pts son Sam [phone] and left a voicemail for callback.
[2019-10-08 16:00] VITALS: BP 100/59
[2019-10-08 20:55] VITALS: BP 112/50
[2019-10-08] MEDS: TRAZODONE 50 MG TABLET PO SCH (21:07)
[2019-10-08] MEDS: ATORVASTATIN 40 MG TABLET PO SCH (21:07)
[2019-10-09 08:00] VITALS: BP 103/56
[2019-10-09] MEDS: MULTIVITAMINS,THERAGRAN 1 UDTAB TABLET PO SCH (08:48)
[2019-10-09] MEDS: METFORMIN 500 MG TABLET PO SCH ×2 (08:49→16:33)
[2019-10-09] MEDS: DIVALPROEX SODIUM 125 MG CAP.SPRINK PO SCH (08:49)
[2019-10-09] MEDS: risperiDONE 1 MG TABLET PO SCH ×2 (08:49→16:33)
[2019-10-09] MEDS: ENSURE ENLIVE 237 ML LIQUID (VANILLA) PO SCH ×2 (08:49→16:33)
--- NOTE | 2019-10-09 09:21 | NUR ---
FAMILY CONTACT: ISMA contacted pts son Sam [phone] and informed him pt has been accepted to [facility]. SW also informed him that there is not discharge date as of yet. SW informed son that pt has been actively hallucinating and has been agitated. SW informed him that she will keep him updated on treatment and discharge plan. Son agreed.
--- NOTE | 2019-10-09 09:30 | NUR ---
INDIVIDUAL INTERVENTION: and ISMA met with pt at bedside to discuss her current feelings of depression and auditory hallucinations, pt stated that she was not feeling well and that she felt very dizzy and the voices were really strong. She stated that the Depakote is making her feel sick and MD stated that he will change her medications.
--- NOTE | 2019-10-09 09:52 | NUR ---
FAMILY CONTACT: ISMA contacted pts son Sam [phone] and informed him that SW and MD met with pt to discuss her current symptoms. SW informed him that MD is changing pts medications to decrease hallucinations and dizziness. Son agreed with treatment plan.
[2019-10-09 16:00] VITALS: BP 101/53
[2019-10-09] MEDS: MAG HYDROX/AL HYDROX/SIMETH 30 ML UDC PO PRN (18:56)
--- NOTE | 2019-10-09 18:56 | NUR ---
RN NOTE- PT C/O STOMACH CRAMPS, GAS PAINS. PRN MAALOX GIVEN.
[2019-10-09 20:06] VITALS: BP 118/63
[2019-10-09] MEDS: ATORVASTATIN 40 MG TABLET PO SCH (21:09)
[2019-10-09] MEDS: TRAZODONE 50 MG TABLET PO SCH (21:10)
[2019-10-10 08:00] VITALS: BP 107/69
[2019-10-10] MEDS: MULTIVITAMINS,THERAGRAN 1 UDTAB TABLET PO SCH (08:52)
[2019-10-10] MEDS: METFORMIN 500 MG TABLET PO SCH ×2 (08:52→16:38)
[2019-10-10] MEDS: risperiDONE 1 MG TABLET PO SCH ×2 (08:52→16:38)
[2019-10-10] MEDS: ENSURE ENLIVE 237 ML LIQUID (VANILLA) PO SCH ×2 (09:26→17:43)
[2019-10-10] MEDS: MAG HYDROX/AL HYDROX/SIMETH 30 ML UDC PO PRN (09:29)
--- NOTE | 2019-10-10 09:31 | NUR ---
RN NOTE: PATIENT C/O INDIGESTION, PRN MAALOX ADMINISTERED.
[2019-10-10] MEDS: DULOXETINE HCL 30 MG CAPSULE.DR PO SCH (14:13)
--- NOTE | 2019-10-10 15:46 | NUR ---
PSYCH & SW INTERVENTION: Pt continues to have symptoms of depression is isolative and withdrawn and refused to eat her food today due to her stating she is unable to eat it due to her not having teeth. Pt is on a chopped diet. Pt is being seen by Dr. Camacho who stated pt has no motivation to get better. Dr. Sandy and SW met with pt at bedside and pt continues to state she Is not feeling well and is hearing voices. Dr. Sandy changed her medications yesterday and per pt they are not working. Pt refuses to attend group milleu and get up from bed.
[2019-10-10 16:00] VITALS: BP 147/67
[2019-10-10 20:26] VITALS: BP 150/96
[2019-10-10] MEDS: ATORVASTATIN 40 MG TABLET PO SCH (21:16)
[2019-10-10] MEDS: TRAZODONE 50 MG TABLET PO SCH (21:16)
[2019-10-10] MEDS: LORAZEPAM 0.5 MG TABLET PO PRN (22:56)
[2019-10-10 23:14] VITALS: BP 137/90
[2019-10-11 08:00] VITALS: BP 105/49
[2019-10-11] MEDS: METFORMIN 500 MG TABLET PO SCH ×2 (08:45→17:20)
[2019-10-11] MEDS: MULTIVITAMINS,THERAGRAN 1 UDTAB TABLET PO SCH (08:45)
[2019-10-11] MEDS: risperiDONE 1 MG TABLET PO SCH ×2 (08:45→17:20)
[2019-10-11] MEDS: DULOXETINE HCL 30 MG CAPSULE.DR PO SCH (08:45)
[2019-10-11] MEDS: ENSURE ENLIVE 237 ML LIQUID (VANILLA) PO SCH ×2 (09:47→17:40)
--- NOTE | 2019-10-11 15:02 | NUR ---
SS Group Note: SW went to patient's room to invite patient to attend today's support group at 1:00pm regarding holidays sensory activity being held in the activities room. Patient refused stating, " I am tired and just want to sleep". Pt.'s mood is depressed with flat affect. SW encouraged pt. to attend group activity. Patient expressed not being interested. SW respected pt.'s self-determination.
[2019-10-11 16:00] VITALS: BP 103/54
[2019-10-11] MEDS: TRAZODONE 50 MG TABLET PO SCH (20:52)
[2019-10-11] MEDS: ATORVASTATIN 40 MG TABLET PO SCH (20:52)
[2019-10-11 22:05] VITALS: BP 114/57
[2019-10-12 08:00] VITALS: BP 101/55
[2019-10-12] MEDS: ENSURE ENLIVE 237 ML LIQUID (VANILLA) PO SCH ×2 (08:14→17:31)
[2019-10-12] MEDS: DULOXETINE HCL 30 MG CAPSULE.DR PO SCH (08:15)
[2019-10-12] MEDS: MULTIVITAMINS,THERAGRAN 1 UDTAB TABLET PO SCH (08:16)
[2019-10-12] MEDS: METFORMIN 500 MG TABLET PO SCH ×2 (08:16→16:24)
[2019-10-12] MEDS: risperiDONE 1 MG TABLET PO SCH ×2 (08:16→16:24)
--- NOTE | 2019-10-12 15:27 | NUR ---
SS Group Note 10/12/19: SW went to patient's room to invite patient to attend today's support group at 1:00pm regarding Mindfulness being held in the activities room. Patient presented laying on her bed sleeping. SW attempted to wake patient but they were not easily rousable.
[2019-10-12 16:00] VITALS: BP 142/73
[2019-10-12] MEDS: LORAZEPAM 0.5 MG TABLET PO PRN (19:30)
[2019-10-12 20:16] VITALS: BP_SYST 137; BP_SYST 160; BP_DIAS 74
[2019-10-12] MEDS: ATORVASTATIN 40 MG TABLET PO SCH (21:33)
[2019-10-12] MEDS: TRAZODONE 50 MG TABLET PO SCH (21:34)
[2019-10-13 08:00] VITALS: BP 100/57
[2019-10-13] MEDS: ENSURE ENLIVE 237 ML LIQUID (VANILLA) PO SCH ×2 (08:14→16:35)
[2019-10-13] MEDS: risperiDONE 1 MG TABLET PO SCH ×2 (08:15→16:35)
[2019-10-13] MEDS: METFORMIN 500 MG TABLET PO SCH ×2 (08:15→16:35)
[2019-10-13] MEDS: DULOXETINE HCL 30 MG CAPSULE.DR PO SCH (08:15)
[2019-10-13] MEDS: MULTIVITAMINS,THERAGRAN 1 UDTAB TABLET PO SCH (08:15)
[2019-10-13] MEDS: LORAZEPAM 0.5 MG TABLET PO PRN (11:14)
--- NOTE | 2019-10-13 11:15 | NUR ---
RN NOTE- PT W AGITATION. PRN ATIVAN GIVEN
[2019-10-13 16:00] VITALS: BP 114/68
[2019-10-13 20:00] VITALS: BP 123/68
[2019-10-13] MEDS: TRAZODONE 50 MG TABLET PO SCH (21:12)
[2019-10-13] MEDS: ATORVASTATIN 40 MG TABLET PO SCH (21:13)
[2019-10-14 08:00] VITALS: BP 107/51
[2019-10-14] MEDS: METFORMIN 500 MG TABLET PO SCH ×2 (08:03→17:20)
[2019-10-14] MEDS: MULTIVITAMINS,THERAGRAN 1 UDTAB TABLET PO SCH (08:03)
[2019-10-14] MEDS: ENSURE ENLIVE 237 ML LIQUID (VANILLA) PO SCH ×2 (08:03→17:20)
[2019-10-14] MEDS: risperiDONE 1 MG TABLET PO SCH ×2 (08:03→17:20)
[2019-10-14] MEDS: DULOXETINE HCL 30 MG CAPSULE.DR PO SCH (08:03)
[2019-10-14] MEDS: LORAZEPAM 0.5 MG TABLET PO PRN ×2 (09:28→21:17)
[2019-10-14 16:00] VITALS: BP 130/81
[2019-10-14 20:14] VITALS: BP 112/63
[2019-10-14] MEDS: ATORVASTATIN 40 MG TABLET PO SCH (21:17)
[2019-10-14] MEDS: TRAZODONE 50 MG TABLET PO SCH (21:17)
--- NOTE | 2019-10-14 21:20 | NUR ---
Pt c/o of anxiety. Least restrictive measures ineffective. Ativan 1 mg po prn given as ordered. Will continue to monitor.
--- NOTE | 2019-10-14 22:23 | NUR ---
Ativan effective. post 1 hour pt calm and asleep in bed easy to arouse. Will continue to monitor.
[2019-10-15 08:00] VITALS: BP 145/79
[2019-10-15] MEDS: risperiDONE 1 MG TABLET PO SCH ×2 (08:43→17:01)
[2019-10-15] MEDS: METFORMIN 500 MG TABLET PO SCH ×2 (08:43→17:01)
[2019-10-15] MEDS: DULOXETINE HCL 30 MG CAPSULE.DR PO SCH (08:43)
[2019-10-15] MEDS: MULTIVITAMINS,THERAGRAN 1 UDTAB TABLET PO SCH (08:43)
[2019-10-15] MEDS: ENSURE ENLIVE 237 ML LIQUID (VANILLA) PO SCH ×2 (08:44→17:01)
[2019-10-15] MEDS: MAGNESIUM HYDROXIDE 30 ML UDC PO PRN (09:14)
[2019-10-15] MEDS: ACETAMINOPHEN 325 MG TABLET PO PRN (09:15)
[2019-10-15] MEDS: FLUTICASONE PROPIONATE 16 GM BOTTLE NS PRN (09:21)
[2019-10-15] MEDS: LORAZEPAM 0.5 MG TABLET PO PRN ×2 (11:37→22:45)
[2019-10-15] MEDS: ONDANSETRON 4 MG TAB.RAPDIS PO PRN (13:27)
--- NOTE | 2019-10-15 15:26 | NUR ---
GROUP NOTE: SW assessed pts ability to participate in group therapy discussing "discharge planning." Pt refused to participate saying she did not feel well and wanted to stay in her room. SW provided intervention regarding her symptoms of depression and pt stated the medication was still not working. SW encouraged pt to participate in group milieu but pt continued to refuse.
--- NOTE | 2019-10-15 15:32 | NUR ---
SNF: ISMA received a call from Anna Haider, treatment coordinator at [facility] Address: [address] [place] [address] requesting discharge information. ISMA informed her that pt will be discharged on Tuesday10/17/19. Anna requested updated clinicals before pts discharge.
[2019-10-15 16:00] VITALS: BP 108/57
[2019-10-15 20:59] VITALS: BP 110/72
[2019-10-15] MEDS: TRAZODONE 50 MG TABLET PO SCH (21:21)
[2019-10-15] MEDS: ATORVASTATIN 40 MG TABLET PO SCH (21:22)
--- NOTE | 2019-10-15 22:45 | NUR ---
RN NOTES ADMINISTERED ATIVAN 1MG ORDERED FOR ANXIETY. PATIENT BECAME VERY ANXIOUS AND IRRITABLE, HAVING OUTBURST SHOUTING "GISSELLE" DESPITE ATTEMPTS TO REORIENT PATIENT. VSS. WILL CONTINUE TO MONITOR
[2019-10-16 08:00] VITALS: BP 94/97
[2019-10-16] MEDS: DULOXETINE HCL 30 MG CAPSULE.DR PO SCH (08:27)
[2019-10-16] MEDS: risperiDONE 1 MG TABLET PO SCH ×2 (08:28→16:48)
[2019-10-16] MEDS: MULTIVITAMINS,THERAGRAN 1 UDTAB TABLET PO SCH (08:28)
[2019-10-16] MEDS: METFORMIN 500 MG TABLET PO SCH ×2 (08:28→16:47)
[2019-10-16] MEDS: ENSURE ENLIVE 237 ML LIQUID (VANILLA) PO SCH ×2 (08:32→17:24)
[2019-10-16] MEDS ORDERED: ZOLPIDEM TARTRATE 10 MG TABLET PO PRN (09:30)
--- NOTE | 2019-10-16 13:42 | NUR ---
FAMILY CONTACT: ISMA contacted pts son Sam [phone] and informed him pt will be discharged tomorrow Tuesday10/17/19 at 1230 to [facility]. Son agreed with discharge plan.
[2019-10-16 16:00] VITALS: BP 137/66
[2019-10-16] MEDS: LORAZEPAM 0.5 MG TABLET PO PRN (16:47)
--- NOTE | 2019-10-16 17:13 | NUR ---
RN NOTE: PATIENT NOTED WITH EPISODE OF ANXIETY M/B BANGING ON WINDOW AND TRYING TO LEAVE THE UNIT. REDIRECTED PATIENT NEEDED AND ADMINISTERED PRN ATIVAN
[2019-10-16 20:25] VITALS: BP 124/51
[2019-10-16] MEDS: TRAZODONE 50 MG TABLET PO SCH (21:12)
[2019-10-16] MEDS: ATORVASTATIN 40 MG TABLET PO SCH (21:12)
[2019-10-17 08:00] VITALS: BP 126/65
[2019-10-17] MEDS: DULOXETINE HCL 30 MG CAPSULE.DR PO SCH (08:22)
[2019-10-17] MEDS: risperiDONE 1 MG TABLET PO SCH (08:22)
[2019-10-17] MEDS: MULTIVITAMINS,THERAGRAN 1 UDTAB TABLET PO SCH (08:22)
[2019-10-17] MEDS: METFORMIN 500 MG TABLET PO SCH (08:23)
[2019-10-17] MEDS: ENSURE ENLIVE 237 ML LIQUID (VANILLA) PO SCH (08:25)
--- NOTE | 2019-10-17 09:37 | NUR ---
DISCHARGE NOTE: Pt will be discharged at 12:30pm via [facility] to [facility] Address: [address] [place] [address] . Pts son Sam [phone] has been notified and agrees with discharge plan. Pts mood is depressed with congruent affect. Pts insight and judgement is poor. Pt will follow up with Psychiatrist: Dr. Sandy [address] [facility] [address] [address] [phone] and Biomedical Manager: Dr. Robert Varma Address: [address] [facility] [address] [address] . The multidisciplinary exit care form was done, printed, signed, and given to the patient.
--- NOTE | 2019-10-17 10:18 | NUR ---
RN NOTE: REPORT CALLED TO [facility] [phone]. REPORT GIVEN TO YANELI Aceves RN. WILL FAX MEDICATION RECONCILIATION TO [phone]
--- NOTE | 2019-10-17 12:30 | NUR ---
LAUNDRY ATTENDANT NOTE: D/C HOLD. PT DISCHARGED TO [facility] AT [address] [place], [place] [id number] [phone]. VSS: 139/61, 73, 18, 96% ROOM AIR. PT STABLE FOR DISCHARGE. PT DENIES SI/HI/AH/VH AT TIME OF DISCHARGE. PT TO COMPLY WITH MEDICATION ADMINISRATION AND PLAN OF CARE. PT TO FOLLOW UP WITH RESIDENTIAL THERAPIST AND PSYCHIATRIST WITHIN ONE WEEK. PT VERBALIZED UNDERSTANDING OF D/C PLAN TO SNF. Addendum: 10/17/19 at 1310 by BUSTER GREGORY RN ADDENDUM TO LAUNDRY ATTENDANT NOTE: PT DISCHARGED VIA GURNEY WITH AMBULANCE TRIP# [id number]
== END 2019-10-17 11:30 | DRG 885 ==
LOC: ER 12:42 → GPS 15:32
PROVIDERS: ADMIT Psychiatry & Neurology Psychiatry; ATTEND Hospitalist
DX: F31.5 Bipolar disorder, current episode depressed, severe, with psychotic features (principal); G93.41 Metabolic encephalopathy; E78.5 Hyperlipidemia, unspecified; E11.9 Type 2 diabetes mellitus without complications; F41.9 Anxiety disorder, unspecified; Z73.6 Limitation of activities due to disability; Z79.84 Long term (current) use of oral hypoglycemic drugs; I10 Essential (primary) hypertension; D69.6 Thrombocytopenia, unspecified; Z79.899 Other long term (current) drug therapy; Z91.19 Patient's noncompliance with other medical treatment and regimen; Z81.8 Family history of other mental and behavioral disorders
CPT/HCPCS: 36415; 71045-TC; 80048-TC; 80053-TC; 80061-TC; 80076-TC; 80164-TC; 80305; 81000-TC; 82962-TC; 83690-TC; 84484-TC; 85025-TC; 87081-TC; 97116-TC; 97530-TC; G0480; Q0162

== ENCOUNTER 2019-11-03 14:17 | Inpatient (IN) | payer MEDICARE, OTHER ==
[~2019-11-03] VITALS: Ht 172.7 cm; Wt 61.2 kg
[~2019-11-03 14:17] MED LIST changes: +ACET-868 PO; -ATOR20TA PO; +ATOR40TA PO; +BISA10SU11 RC; +LACT-58 PO; +LACT10SO PO; -LISI-607 PO; -LORA2TAB PO; +MAGN400O6 PO; +METF-440 PO; -METO25TA6 PO; -MIRT15TA7 PO; +MULT-1168 PO; +NA P133E RC; +PALI234D IM; -QUET200T PO; -ZOLP10TA6 PO; -[UNRECOGNIZED DRUG - OTHER]
--- NOTE | 2019-11-03 14:22 | NUR ---
SENT [facility] FOR AGITATION (BANGING HEAD ON SIDE RAIL) , RESTLESSNESS, YELLING AND SCREAMING, BEING CONFUSED. TO ER BED 9, PATIENT WAS CALM AND COOPERATIVE (ANSWERS QUESTIONS ASKED BY THE DOCTOR) UPON ARRIVAL IN ER. HOOKED TO MONITOR, CHANGED TO HOSP GOWN, PROVIDED W WARM BLANKET, AWAITING MD LYONS.
--- NOTE | 2019-11-03 14:26 | NUR ---
DR ALEXANDER AT BEDSIDE
[2019-11-03] MEDS ORDERED: IV NS 0.9% 500 ML BAG IV ONE (14:30)
[2019-11-03] MEDS ORDERED: ONDANSETRON HCL/PF 4 MG/2 ML VIAL IVP ONE (14:30)
[2019-11-03 14:48] LABS: BASOPHILS % (AUTO) 0.1 % (0.0-2.0); EOSINOPHILS % (AUTO) 0.4 % (0.0-6.0); HEMATOCRIT 39 % (33-45); LYMPHOCYTES # (AUTO) 2.1 /CMM (0.8-4.8); LYMPHOCYTES % (AUTO) 30.2 % (20.0-44.0); MEAN CORPUSCULAR HGB CONC 34 g/dl (31.0-36.0); MEAN CORPUSCULAR VOLUME 89 fL (82-100); MONOCYTES # (AUTO) 0.4 /CMM (0.1-1.30); MONOCYTES % (AUTO) 5.8 % (2.0-12.0); NEUTROPHILS # (AUTO) 4.5 /CMM (1.8-8.9); NEUTROPHILS % (AUTO) 63.5 % (43.0-81.0); PLATELET COUNT (AUTO) 143 /CMM (150-450); RED BLOOD CELL COUNT(AUTO) 4.34 MIL/uL (4.0-5.2); WHITE BLOOD COUNT (AUTO) 7.1 K/uL (4.3-11.0)
[2019-11-03 14:59] LABS: CALCIUM, SERUM 9.7 mg/dL (8.5-10.1); CARBON DIOXIDE 25 mmol/L (21-32); CHLORIDE 101 mmol/L (98-107); CREATININE 0.7 mg/dL (0.6-1.3); GLUCOSE 83 mg/dL (74-106); POTASSIUM 4.1 mmol/L (3.5-5.1); SODIUM SERUM 135 mmol/L (136-145); UREA NITROGEN, BLOOD 10 mg/dL (7-18)
[2019-11-03 15:04] LABS: ALANINE AMINOTRANSFERASE 27 U/L (12-78); ALCOHOL, BLOOD < 3 mg/dL (0-0); ALKALINE PHOSPHATASE 87 U/L (46-116); ASPARTATE AMINOTRANSFERASE 19 U/L (15-37); BILIRUBIN,DIRECT 0.1 mg/dL (0.0-0.2); BILIRUBIN,TOTAL 0.6 mg/dL (0.2-1.0); TOTAL PROTEIN, SERUM 7.5 g/dL (6.4-8.2)
[2019-11-03 15:05] LABS: ACETAMINOPHEN < 2 ug/ml (10-30); SALICYLATE 0.5 mg/dL (2.8-20.0)
[2019-11-03] MEDS ORDERED: ONDANSETRON HCL/PF 4 MG/2 ML VIAL ONE (15:07)
--- NOTE | 2019-11-03 15:22 | NUR ---
URINE SAMPLE COLLECTED VIA STRAIGHT CATH, SENT TO LAB
[2019-11-03 15:28] LABS: APPEARANCE,URINE Clear (CLEAR); BILIRUBIN,URINE Negative (NEGATIVE); BLOOD, URINE Negative Ery/uL (NEGATIVE); COLOR,URINE Light yellow (YELLOW); KETONES,URINE Negative (NEGATIVE); LEUKOCYTE ESTERASE ,URINE Negative (NEGATIVE); NITRITE, URINE Positive (NEGATIVE); PROTEIN,URINE Negative (NEGATIVE); UGLUCOSE Negative (NEGATIVE); UROBILINOGEN,URINE 0.2 EU/dL (0.2)
[2019-11-03 15:46] LABS: BACTERIA,URINE Many /HPF (None Seen); RBC,URINE 0-2 /HPF (0-2); SQUAMOUS EPITHELIAL CELL,UR Rare /HPF (None Seen); WBC,URINE 0-2 /HPF (0-3)
--- NOTE | 2019-11-03 16:35 | NUR ---
CALLED CLINICIAN ANT WHIPPLE, STATES ETA 1HR
--- NOTE | 2019-11-03 17:42 | NUR ---
CURTAIN MENDER PARRISH AT BEDSIDE
--- NOTE | 2019-11-03 17:50 | NUR ---
MID LEVEL BUSINESS ANALYST ANT PLACED PATIENT ON 5150 72 HOUR HOLD FOR DANGER TO HERSELF AND GRAVELY DISBLED ADULT.
--- NOTE | 2019-11-03 18:46 | NUR ---
REPORT GIVEN TO JAHAIRA OF GPS
--- NOTE | 2019-11-03 19:15 | NUR ---
GPS CHICKEN HATCHERY HELPER NOTES: RECEIVED PT FROM FROM ER DEPARTMENT. PATIENT ARRIVED ON THIS UNIT AT 1915 VIA WHEELCHAIR WITH 1 NURSE ESCORT. PATIENT ADMITTED ON A 5150 HOLD FOR DTS AND GD. PER HOLD PT BECAME AGITATED, RESTLESS, BANGING HER HEAD ON THE RAIL, YELLING, AND SCREAMING AT HER CURRENT HOME AT [facility]. THE 5150 WAS REVIEWED AND THE DOCUMENTATION ON IN THE 5150 HOLD APPEARS TO REFLECT THE PRESENTATION OF THE PT. UPON FACE TO FACE ASSESSMENT PATIENT IS NOTED CALM, COOPERATIVE, FRIENDLY, ISOLATIVE, SIERRA LEONEAN SPEAKING BUT CAN UNDERSTAND AND SPEAK ALGERIAN MINIMALLY. PATIENT IS CURRENTLY LYING IN BED AWAKE. NO S/S OF RESPIRATORY DISTRESS. BREATHING EVEN AND UNLABORED. NO S/S OF PAIN. PATIENT IS ALERT ORIENTED X3 ON ROOM AIR. PATIENT ASSISTED WITH TURING AND REPOSITION. PATIENT ASKED FOR UNDERWEAR. SUPPLIED HER WITH UNDERWEAR REQUESTED. PT DENIES S/I AND H/I AT THIS TIME. PATIENT REFUSED TO SIGN PAPER WORK. PATIENT ADVISED OF HER HOLD AND PATIENT PT RIGHTS BOOKLET GIVEN. PT IS UNDER THE PSYCHIATRIC DR INGRAM AND THE MEDICAL DR WHITMAN. PATIENTS BELONGINGS WERE INVENTORIED AND CHECKED FOR CONTRABAND. PATIENTS ADVANCED PREFERENCE AND NECESSARY PAPERWORK COMPLETED. PT SKIN ASSESSMENT DONE WITH SKIN INTACT. PATIENT ORIENTED TO THE FLOOR, ROOM, AND STAFF WITH ALL QUESTIONS ANSWERED. PATIENT EDUCATED ON THE USE OF THE CALL OLVERA. PATIENT BED SIDE RAILS ARE UP X 2 FOR SAFETY. PATIENT MARS IS LOCKED, LOW AND I WILL CONTINUE TO MONITOR THIS PATIENT Q 15 MIN WITH THE HELP OF STAFF TO MAINTAIN SAFETY.
[2019-11-03] MEDS ORDERED: ACETAMINOPHEN 325 MG TABLET PO PRN (20:00)
[2019-11-03] MEDS ORDERED: MAGNESIUM HYDROXIDE 30 ML UDC PO PRN ×2 (20:00→20:30)
[2019-11-03 20:10] VITALS: BP 116/55
[2019-11-03] MEDS ORDERED: BISACODYL SUPP (10 MG) 10 MG/SUPP.RECT SUPP.RECT RC PRN (20:30)
[2019-11-03] MEDS ORDERED: LACTULOSE 10 G/15 ML UDC (PYXIS) PO PRN (20:30)
[2019-11-03] MEDS ORDERED: NA PHOS,M-B/NA PHOS,DI-BA 1 EA ENEMA RC PRN (20:30)
[2019-11-03] MEDS ORDERED: BLOOD SUGAR DIAGNOSTIC 1 EACH STRIP IN ONE (21:00)
[2019-11-03] MEDS: MAG HYDROX/AL HYDROX/SIMETH 30 ML UDC PO PRN (22:30)
[2019-11-03] MEDS: ATORVASTATIN 40 MG TABLET PO SCH (22:30)
--- NOTE | 2019-11-03 22:34 | NUR ---
GPS RN NOTES; PT C/O OF INGESTION. OFFERED MAALOX ORDERED PRN. PT AGREED. ADMINISTERED MEDICATION. PT TOLERATED WELL CONTINUE TO MONITOR.
[2019-11-04 01:10] VITALS: BP 116/55
[2019-11-04 08:00] VITALS: BP 100/57
[2019-11-04] MEDS: MULTIVIT W/MINERALS 1 TAB TABLET PO SCH (08:38)
[2019-11-04] MEDS: METFORMIN 500 MG TABLET PO SCH ×2 (08:38→17:27)
[2019-11-04] MEDS: ENSURE ENLIVE 237 ML LIQUID (VANILLA) PO SCH ×2 (08:39→17:28)
[2019-11-04] MEDS: LORAZEPAM 0.5 MG TABLET PO PRN (09:10)
--- NOTE | 2019-11-04 09:10 | NUR ---
RN NOTE- PT YELLING 'GISSELLE' VERY LOUDLY. AGITATED. ATIVAN PRN GIVEN
[2019-11-04] MEDS: MAG HYDROX/AL HYDROX/SIMETH 30 ML UDC PO PRN (09:41)
--- NOTE | 2019-11-04 09:42 | NUR ---
RN NOTE- PT C/O INDIGESTION. MAALOX GIVEN PRN
--- NOTE | 2019-11-04 10:11 | NUR ---
RN NOTE- DR TSE SEEING PT. PT STILL YELLING AND AGITATED. DEPAKOTE 125MG, RISPERDAL 1 MG MG AND COGENTIN 0.5 MG ORDERED. COMPLIED
[2019-11-04] MEDS: risperiDONE-M 0.5 MG TAB.RAPDIS PO SCH ×2 (10:20→17:27)
[2019-11-04] MEDS: DIVALPROEX SODIUM 125 MG CAP.SPRINK PO SCH ×3 (10:20→17:27)
[2019-11-04] MEDS: BENZTROPINE MESYLATE (1 MG) 1 MG TABLET PO SCH ×2 (11:03→17:28)
--- NOTE | 2019-11-04 13:42 | NUR ---
RN NOTE- PT AGITATED, SCREAMING, COMBATIVE W SITTER IN ROOM. DR TSE CHANGED ORDER OF ATIVAN. ATIVAN 1 MG PO Q4H PRN NTE 3 MG/24 HR. COMPLYING.
[2019-11-04] MEDS ORDERED: risperiDONE-M 0.5 MG TAB.RAPDIS PO PRN (14:00)
[2019-11-04] MEDS: LORAZEPAM 1 MG TABLET PO PRN (14:20)
--- NOTE | 2019-11-04 14:30 | NUR ---
RN NOTE- PT ATTEMPTING TO HIT STAFF. YELLING. DR TSE CALLED. RISPERDAL 1MG PO X ONE DOSE NOW. COMPLIED.
[2019-11-04] MEDS ORDERED: risperiDONE 1 MG TABLET PO STA (14:38)
[2019-11-04 16:00] VITALS: BP 144/67
[2019-11-04 20:37] VITALS: BP 118/53
[2019-11-04] MEDS: ATORVASTATIN 40 MG TABLET PO SCH (21:28)
[2019-11-05 07:55] LABS: BASOPHILS % (AUTO) 0.2 % (0.0-2.0); EOSINOPHILS % (AUTO) 0.6 % (0.0-6.0); HEMATOCRIT 37 % (33-45); HEMOGLOBIN 12.7 g/dL (11.5-14.8); LYMPHOCYTES # (AUTO) 2.8 /CMM (0.8-4.8); LYMPHOCYTES % (AUTO) 47.2 % (20.0-44.0); MEAN CORPUSCULAR HGB CONC 34 g/dl (31.0-36.0); MEAN CORPUSCULAR VOLUME 89 fL (82-100); MONOCYTES # (AUTO) 0.4 /CMM (0.1-1.30); MONOCYTES % (AUTO) 6.9 % (2.0-12.0); NEUTROPHILS # (AUTO) 2.6 /CMM (1.8-8.9); NEUTROPHILS % (AUTO) 45.1 % (43.0-81.0); PLATELET COUNT (AUTO) 141 /CMM (150-450); RED BLOOD CELL COUNT(AUTO) 4.23 MIL/uL (4.0-5.2); WHITE BLOOD COUNT (AUTO) 5.8 K/uL (4.3-11.0)
[2019-11-05 08:00] VITALS: BP 136/67
[2019-11-05 08:18] LABS: CALCIUM, SERUM 9.6 mg/dL (8.5-10.1); CREATININE 0.7 mg/dL (0.6-1.3); POTASSIUM 4.3 mmol/L (3.5-5.1)
[2019-11-05] MEDS: MULTIVIT W/MINERALS 1 TAB TABLET PO SCH ×2 (09:00→09:06)
[2019-11-05] MEDS: METFORMIN 500 MG TABLET PO SCH ×3 (09:00→16:26)
[2019-11-05] MEDS: DIVALPROEX SODIUM 125 MG CAP.SPRINK PO SCH ×4 (09:00→16:26)
[2019-11-05] MEDS: BENZTROPINE MESYLATE (1 MG) 1 MG TABLET PO SCH ×3 (09:00→16:26)
[2019-11-05] MEDS: risperiDONE-M 0.5 MG TAB.RAPDIS PO SCH ×2 (09:06→16:26)
[2019-11-05] MEDS: ENSURE ENLIVE 237 ML LIQUID (VANILLA) PO SCH ×2 (09:11→17:00)
--- NOTE | 2019-11-05 10:18 | NUR ---
PATIENT REFUSED ALL AM MEDS DESPITE EXPLANATION OF RISKS AND BENEFITS. 3 ATTEMPTS MADE. WILL CONTINUE TO MONITOR Q15 Addendum: 11/05/19 at 1347 by RAMOS WOODS RN PATIENT REFUSED 1300 MEDICATION Addendum: 11/05/19 at 1628 by RAMOS WOODS RN patient refused all 1700 medications. she states that medication gives her "anxiety, makes me excited, i'm sorry, I dont take" will continue to monitor q15
--- NOTE | 2019-11-05 10:36 | NUR ---
Psychosocial Note: I, Azul Daily INVESTIGATOR VICE, attest to the patients previous psychosocial information dated 10/02/19 Update On Events leading to Admission and Discharge Plan: Pt has returned to the hospital within two weeks of her previous discharge date of 10/17/19. The current plan is to increase the patient on her medications and discharge her back to [facility] Address: [address] [place] [address] . Per Anna, air traffic coordinator pt is able to return to the facility. Per Son Sam [phone] he agrees with treatment and discharge plan. The pt appeared to be in a dysphoric mood with flat affect. Pt refused to speak to MD and SW. Pt remained mute throughout the interview. Pt appeared to be ambulatory, well-groomed and appropriately dressed. Pt appeared to be mentally preoccupied. SW will form a safe and proper discharge and coordinate with MD.
--- NOTE | 2019-11-05 11:00 | NUR ---
FAMILY CONTACT: SW contacted pts Son Sam [phone] and discussed pts treatment and discharge plan back to [facility]. Son agreed with plan.
--- NOTE | 2019-11-05 11:39 | NUR ---
FACILITY CONTACT: ISMA contacted Anna, coordinator skill training program at [facility] Address: [address] [place] [address] who stated pt is able to return to the facility once stable.
--- NOTE | 2019-11-05 15:54 | NUR ---
GROUP NOTE: SW encouraged pt to attend group on this present day discussing "discharge planning." Pt unable to attend due to her current psychotic symptoms. Pt refused to speak to SW and is mute. Pt staring at the ceiling and appears as she is responding to internal stimuli.
[2019-11-05 15:57] VITALS: BP 136/70
--- NOTE | 2019-11-05 19:37 | NUR ---
PT RECEIVED FR THE MORNING SHIFT, PT IS ON BED SLEEPING QUIETLY,PT IS ON 1:1,PT HAS NO S/S AND C/O PAIN AND DISCOMFORT, CONTINUE TO MONITOR PT FOR ANY CHANGES.
[2019-11-05 20:17] VITALS: BP 158/75
[2019-11-05] MEDS: ATORVASTATIN 40 MG TABLET PO SCH (21:18)
[2019-11-05] MEDS: LORAZEPAM 1 MG TABLET PO PRN (22:03)
[2019-11-05] MEDS: ZOLPIDEM TARTRATE 5 MG TABLET PO PRN (23:50)
--- NOTE | 2019-11-05 23:55 | NUR ---
pt refused hs routine meds, explain to pt the important of the med but pt still refused to take the meds.
[2019-11-06] MEDS: LORAZEPAM 1 MG TABLET PO PRN ×2 (07:46→13:50)
--- NOTE | 2019-11-06 07:47 | NUR ---
RN NOTE- AGITATED, YELLING. ATIVAN 1 MG PO PRN GIVEN
[2019-11-06 08:00] VITALS: BP 149/71
[2019-11-06] MEDS: DIVALPROEX SODIUM 125 MG CAP.SPRINK PO SCH ×3 (08:27→16:06)
[2019-11-06] MEDS: METFORMIN 500 MG TABLET PO SCH ×2 (08:27→16:07)
[2019-11-06] MEDS: MULTIVIT W/MINERALS 1 TAB TABLET PO SCH (08:27)
[2019-11-06] MEDS: BENZTROPINE MESYLATE (1 MG) 1 MG TABLET PO SCH (08:28)
[2019-11-06] MEDS: ENSURE ENLIVE 237 ML LIQUID (VANILLA) PO SCH ×2 (08:30→16:07)
[2019-11-06] MEDS: risperiDONE-M 0.5 MG TAB.RAPDIS PO SCH ×2 (08:33→16:07)
[2019-11-06] MEDS ORDERED: BENZTROPINE MESYLATE (1 MG) 1 MG TABLET PO PRN (10:00)
[2019-11-06] MEDS: DULOXETINE HCL 30 MG CAPSULE.DR PO SCH (10:40)
[2019-11-06] MEDS: GLUCERNA SHAKE 237 ML CAN PO SCH ×2 (12:30→16:07)
--- NOTE | 2019-11-06 13:52 | NUR ---
RN NOTE- PT W ANXIETY. STATED VOICES. ATIVAN 1 MG PO PRN GIVEN.
[2019-11-06 16:00] VITALS: BP 140/74
[2019-11-06 20:28] VITALS: BP 140/56
[2019-11-06] MEDS: ATORVASTATIN 40 MG TABLET PO SCH (21:27)
[2019-11-07 08:00] VITALS: BP 145/70
[2019-11-07] MEDS: DIVALPROEX SODIUM 125 MG CAP.SPRINK PO SCH ×3 (08:07→16:40)
[2019-11-07] MEDS: MULTIVIT W/MINERALS 1 TAB TABLET PO SCH (08:07)
[2019-11-07] MEDS: ENSURE ENLIVE 237 ML LIQUID (VANILLA) PO SCH ×2 (08:07→16:40)
[2019-11-07] MEDS: DULOXETINE HCL 30 MG CAPSULE.DR PO SCH (08:07)
[2019-11-07] MEDS: risperiDONE-M 0.5 MG TAB.RAPDIS PO SCH ×2 (08:07→16:41)
[2019-11-07] MEDS: METFORMIN 500 MG TABLET PO SCH ×2 (08:07→16:40)
[2019-11-07] MEDS: LORAZEPAM 1 MG TABLET PO PRN (14:08)
[2019-11-07 16:00] VITALS: BP 159/74
--- NOTE | 2019-11-07 19:30 | NUR ---
GPS RN NOTES RECEIVED IN THE ROOM AWAKE,BANGING HANDS ON THE WINDOW,NEEDS CONSTANT REDIRECTION AND SHE LISTEN TO IT.SPEAK CZECH WITH LITTLE SWEDISH.WALK WITH STEADY GAIT.WILL CONTINUE TO MONITOR BEHAVIOR AND MANAGE ACCORDINGLY.
[2019-11-07 20:00] VITALS: BP 124/44
[2019-11-07] MEDS: LORAZEPAM 0.5 MG TABLET PO PRN (20:07)
--- NOTE | 2019-11-07 20:07 | NUR ---
GPS RN NOTES BANGING HANDS ON SIDE RAILS,MEDICATE WITH ATIVAN 0.5MG PO BY NOVEM CHARGE NURSE
[2019-11-07 20:21] VITALS: BP 124/68
[2019-11-07] MEDS: ATORVASTATIN 40 MG TABLET PO SCH (21:11)
[2019-11-08 08:00] VITALS: BP 135/83
[2019-11-08] MEDS: ENSURE ENLIVE 237 ML LIQUID (VANILLA) PO SCH ×2 (08:55→16:09)
[2019-11-08] MEDS: DIVALPROEX SODIUM 125 MG CAP.SPRINK PO SCH ×3 (08:56→17:08)
[2019-11-08] MEDS: METFORMIN 500 MG TABLET PO SCH ×2 (08:56→16:08)
[2019-11-08] MEDS: risperiDONE-M 0.5 MG TAB.RAPDIS PO SCH ×2 (08:56→17:08)
[2019-11-08] MEDS: DULOXETINE HCL 30 MG CAPSULE.DR PO SCH (08:56)
[2019-11-08] MEDS: MULTIVIT W/MINERALS 1 TAB TABLET PO SCH (08:56)
[2019-11-08] MEDS: LORAZEPAM 0.5 MG TABLET PO PRN (09:23)
[2019-11-08 16:00] VITALS: BP 125/53
[2019-11-08] MEDS: LORAZEPAM 1 MG TABLET PO PRN (16:08)
[2019-11-08] MEDS: ACETAMINOPHEN 325 MG TABLET PO PRN (16:16)
[2019-11-08 16:30] VITALS: BP 140/53
--- NOTE | 2019-11-08 16:31 | NUR ---
Pt. is complaining of chest pain. BP 140/77 and WY 77. Gallo Shah made aware and ordered EKG.
--- NOTE | 2019-11-08 17:12 | NUR ---
RN note notified Dr gibbs about EKG result, - normal sinus rhythm, no new orders further.
[2019-11-08 20:41] VITALS: BP 100/50
[2019-11-08] MEDS: ATORVASTATIN 40 MG TABLET PO SCH (21:11)
--- NOTE | 2019-11-09 07:30 | NUR ---
INITIAL RECEIVED IN THE ROOM AWAKE,BANGING HANDS ON THE WINDOW,NEEDS CONSTANT REDIRECTION AND SHE LISTEN TO IT.SPEAK FAROESE WITH LITTLE CROATIAN. PT REFUSED BREAKFAST.WILL CONTINUE TO MONITOR BEHAVIOR AND MANAGE ACCORDINGLY.
[2019-11-09 08:00] VITALS: BP 109/59
[2019-11-09] MEDS: DIVALPROEX SODIUM 125 MG CAP.SPRINK PO SCH (08:59)
[2019-11-09] MEDS: METFORMIN 500 MG TABLET PO SCH ×2 (08:59→18:20)
[2019-11-09] MEDS: ENSURE ENLIVE 237 ML LIQUID (VANILLA) PO SCH ×2 (08:59→18:21)
[2019-11-09] MEDS: DULOXETINE HCL 30 MG CAPSULE.DR PO SCH (08:59)
[2019-11-09] MEDS: risperiDONE-M 0.5 MG TAB.RAPDIS PO SCH ×2 (09:00→18:20)
[2019-11-09] MEDS: MULTIVIT W/MINERALS 1 TAB TABLET PO SCH (09:00)
--- NOTE | 2019-11-09 09:00 | NUR ---
GPS NOTE PT REFUSED ALL MEDICATIONS STATES THAT IS TO MUCH MEDICATION.
--- NOTE | 2019-11-09 09:59 | NUR ---
PT SLAMMING HANDS AGAINST WINDOW GUIDED P T TO BED BUT RETURNED TO VIOENT ACTIVITY ALL MEDICATIONS GIVEN TO PT PREVIOUSLY
[2019-11-09] MEDS ORDERED: HALOPERIDOL LACTATE INJ 5 MG/ML VIAL IM ONE (10:00)
[2019-11-09] MEDS ORDERED: diphenhydrAMINE HCL 50 MG/ML VIAL IM ONE (10:00)
[2019-11-09 16:00] VITALS: BP 129/59
--- NOTE | 2019-11-09 19:20 | NUR ---
CLOSING PT COMPLIANT WITH MEDICATIONS BUT HAS FITS SINCE NOON OF BANGING HANDS AGAINST THE WINDOW IN ROOM PT ESCORTED TO DININNING ROOM AND WAS REDIREDTED REPEATEDLY. WILL ENDORSE CARE TO PM SHIFT RM FOR CONTINUITY OF CARE
[2019-11-09] MEDS: LORAZEPAM 1 MG TABLET PO PRN (20:41)
[2019-11-09 21:09] VITALS: BP 135/83
[2019-11-09] MEDS: ATORVASTATIN 40 MG TABLET PO SCH (21:15)
[2019-11-09] MEDS: ZOLPIDEM TARTRATE 5 MG TABLET PO PRN (22:27)
[2019-11-10 08:00] VITALS: BP 103/51
[2019-11-10] MEDS: ENSURE ENLIVE 237 ML LIQUID (VANILLA) PO SCH ×2 (09:00→17:51)
[2019-11-10] MEDS: METFORMIN 500 MG TABLET PO SCH ×2 (09:19→17:00)
[2019-11-10] MEDS: MULTIVIT W/MINERALS 1 TAB TABLET PO SCH (09:19)
[2019-11-10] MEDS: risperiDONE-M 0.5 MG TAB.RAPDIS PO SCH ×2 (09:20→17:00)
[2019-11-10] MEDS: LORAZEPAM 1 MG TABLET PO PRN ×2 (11:12→19:05)
--- NOTE | 2019-11-10 11:17 | NUR ---
GPS RN NOTE: PATIENT REPETITIVELY SCREAMING "GISSELLE" AND BANGING HEAD AGAINST SIDE RAILS. PATIENT OFFERED PO ATIVAN 1MG PRN AND ACCEPTED ADMINISTRATION. WILL CONTINUE TO MONITOR Q15 FOR SAFETY AND BEHAVIOR.
[2019-11-10 16:00] VITALS: BP 103/80
--- NOTE | 2019-11-10 19:05 | NUR ---
RN NOTES RECEIVED PATIENT IN BED, YELLING. PER AM RN REPORT, PATIENT JUST STARTED SCREAMING REPEATEDLY. ATIVAN 1MG PO GIVEN ORDERED. WILL CONTINUE TO MONITOR
[2019-11-10] MEDS: ACETAMINOPHEN 325 MG TABLET PO PRN (19:45)
[2019-11-10 20:18] VITALS: BP 104/49
[2019-11-10] MEDS: ATORVASTATIN 40 MG TABLET PO SCH (22:05)
[2019-11-11 08:00] VITALS: BP 106/56
[2019-11-11] MEDS: LORAZEPAM 1 MG TABLET PO PRN ×3 (08:28→21:31)
[2019-11-11] MEDS: MULTIVIT W/MINERALS 1 TAB TABLET PO SCH (08:28)
[2019-11-11] MEDS: risperiDONE-M 0.5 MG TAB.RAPDIS PO SCH ×2 (08:28→18:09)
[2019-11-11] MEDS: METFORMIN 500 MG TABLET PO SCH ×2 (08:28→18:09)
[2019-11-11] MEDS: ENSURE ENLIVE 237 ML LIQUID (VANILLA) PO SCH ×2 (08:29→17:00)
--- NOTE | 2019-11-11 14:50 | NUR ---
RN NOTES ADMINISTERED ATIVAN 1 MG PO PRN FOR PARANOIA YELLING, SCREAMING, DISORGANIZED THOUGHTS, REFUSED V/S TO BE TAKEN, SAFETY PRECAUTION MAINTAINED ALL THE TIME.
[2019-11-11 16:00] VITALS: BP 148/80
[2019-11-11 20:10] VITALS: BP 124/50
[2019-11-11] MEDS: ATORVASTATIN 40 MG TABLET PO SCH (21:31)
--- NOTE | 2019-11-11 21:31 | NUR ---
Pt is yelling and screaming and c/o anxiety. Least restrictive measures ineffective. Ativan 1 mg po prn given as ordered. Will continue to monitor.
--- NOTE | 2019-11-11 22:31 | NUR ---
Post 1 hour Ativan effective. Pt calm and asleep in bed easy to arouse. Will continue to monitor.
[2019-11-12 08:00] VITALS: BP 113/68
[2019-11-12] MEDS: ENSURE ENLIVE 237 ML LIQUID (VANILLA) PO SCH ×2 (09:00→17:00)
--- NOTE | 2019-11-12 09:30 | NUR ---
INDIVIDUAL MEETING: ISMA and spoke to pt regarding her current mental state. Pt stated that she was not feeing well and that her head and heart and legs hurt. MD stated that he would prescribe medication to alleviate her headache. Pt stated that there was nothing else MD could do for her and that she wanted to be discharged to her sons house. ISMA stated that she would discuss discharge plan with pts son.
[2019-11-12] MEDS: METFORMIN 500 MG TABLET PO SCH ×2 (09:44→17:08)
[2019-11-12] MEDS: MULTIVIT W/MINERALS 1 TAB TABLET PO SCH (09:44)
--- NOTE | 2019-11-12 10:30 | NUR ---
FAMILY CONTACT: IMSA contacted pts Son Sam [phone] to discuss discharge plan. Son stated that pt could not live with her due to her current mental state and that she needed to return to her SNF. Son requested SW call him when pt is being discharged.
[2019-11-12] MEDS: risperiDONE 1 MG TABLET PO SCH ×2 (12:08→17:08)
[2019-11-12] MEDS: GABAPENTIN 100 MG CAPSULE PO SCH ×2 (12:29→17:12)
--- NOTE | 2019-11-12 15:21 | NUR ---
Group Note: SW went to patient's room to invite patient to attend today's support group at 1:00pm regarding holiday sensory activity being held in the activities room. Patient presented laying on their bed sleeping. SW attempted to wake patient but pt. was not easily rousable.
[2019-11-12 16:00] VITALS: BP 158/71
[2019-11-12] MEDS: LORAZEPAM 1 MG TABLET PO PRN (17:08)
[2019-11-12 20:30] VITALS: BP 164/72
[2019-11-12] MEDS: ATORVASTATIN 40 MG TABLET PO SCH (21:39)
[2019-11-13] MEDS: LORAZEPAM 1 MG TABLET PO PRN ×3 (00:15→22:16)
[2019-11-13] MEDS: ZOLPIDEM TARTRATE 5 MG TABLET PO PRN (00:19)
[2019-11-13 08:00] VITALS: BP 119/62
[2019-11-13] MEDS: risperiDONE 1 MG TABLET PO SCH ×2 (08:51→17:21)
[2019-11-13] MEDS: GABAPENTIN 100 MG CAPSULE PO SCH ×3 (08:51→17:21)
[2019-11-13] MEDS: METFORMIN 500 MG TABLET PO SCH ×2 (08:51→17:21)
[2019-11-13] MEDS: MULTIVIT W/MINERALS 1 TAB TABLET PO SCH (08:51)
[2019-11-13] MEDS: ENSURE ENLIVE 237 ML LIQUID (VANILLA) PO SCH ×2 (09:00→17:21)
--- NOTE | 2019-11-13 14:42 | NUR ---
GROUP NOTE: SW encouraged pt to participate in group therapy discussing "discharge planning." Pt was yelling her sons name and banging on the bed rail refusing to calm down. Nursing staff had to intervene to calm pt. Pt remains psychotic and not responding well to antipsychotic medication.
[2019-11-13 16:44] VITALS: BP 149/97
[2019-11-13 20:44] VITALS: BP 126/48
[2019-11-13] MEDS: ATORVASTATIN 40 MG TABLET PO SCH (21:37)
[2019-11-14] MEDS: ZOLPIDEM TARTRATE 5 MG TABLET PO PRN (00:09)
[2019-11-14 08:00] VITALS: BP 121/66
[2019-11-14] MEDS: METFORMIN 500 MG TABLET PO SCH ×2 (08:45→16:10)
[2019-11-14] MEDS: risperiDONE 1 MG TABLET PO SCH ×3 (08:45→16:10)
[2019-11-14] MEDS: GABAPENTIN 100 MG CAPSULE PO SCH ×3 (08:45→16:10)
[2019-11-14] MEDS: MULTIVIT W/MINERALS 1 TAB TABLET PO SCH (08:45)
[2019-11-14] MEDS: ENSURE ENLIVE 237 ML LIQUID (VANILLA) PO SCH ×2 (09:04→16:10)
[2019-11-14] MEDS: LORAZEPAM 1 MG TABLET PO PRN (10:07)
--- NOTE | 2019-11-14 15:22 | NUR ---
GROUP NOTE: SW encouraged pt to participate in group therapy discussing "insight into mental illness." Pt presents laying in bed refusing to get up and participate in group. Pt states she is not feeling well and does not want to try and get up. SW provided intervention and discussed importance of engaging in recovery and provided insight into mental illness.
[2019-11-14 16:00] VITALS: BP 123/52
[2019-11-14 20:28] VITALS: BP 155/71
[2019-11-14] MEDS: ATORVASTATIN 40 MG TABLET PO SCH (21:26)
[2019-11-14 21:32] VITALS: BP 142/88
[2019-11-15] MEDS: LORAZEPAM 1 MG TABLET PO PRN (02:07)
[2019-11-15 08:00] VITALS: BP 112/57
[2019-11-15 08:44] VITALS: BP 112/57
[2019-11-15] MEDS: METFORMIN 500 MG TABLET PO SCH ×2 (09:00→17:06)
[2019-11-15] MEDS: MULTIVIT W/MINERALS 1 TAB TABLET PO SCH (09:00)
[2019-11-15] MEDS: risperiDONE 1 MG TABLET PO SCH ×2 (09:00→12:25)
[2019-11-15] MEDS: GABAPENTIN 100 MG CAPSULE PO SCH ×2 (09:00→12:25)
[2019-11-15] MEDS: ENSURE ENLIVE 237 ML LIQUID (VANILLA) PO SCH ×2 (09:00→17:29)
--- NOTE | 2019-11-15 10:08 | NUR ---
FAMILY CONTACT: Per pts request, SW contacted pts daughter Zainab [phone] to discuss pts discharge plan. Daughter stated that she is willing to take pt to live with her however she is unable at this time and wishes for pt to be discharged to a SNF then from there daughter will make the necessary arrangements to move pt into her home. SW will update daughter as needed regarding pts discharge date.
[2019-11-15] MEDS: OLANZAPINE 10 MG TABLET PO SCH ×2 (13:35→21:50)
[2019-11-15 16:00] VITALS: BP 136/62
[2019-11-15] MEDS: ACETAMINOPHEN 325 MG TABLET PO PRN (16:58)
[2019-11-15 20:20] VITALS: BP 104/41
--- NOTE | 2019-11-15 21:15 | NUR ---
GPS RN NOTE PATIENT'S MEDICATION WAS ADJUSTED BY DR. SOLITARIO TODAY. PT. WAS GIVEN ZYPREXA 10 MG @ 1335, SECOND DOSE IS SCHEDULED AT 2100. CALLED PHARMACY TO CONFIRM THAT ZYPREXA COULD BE GIVEN SCHEDULED SINCE FIRST DOSE WAS GIVEN AT 1335, PER PHARMACY, OK TO GIVE ZYPREXA SCHEDULED AT 2100. CHARGE NURSE IS AWARE.
[2019-11-15] MEDS: ATORVASTATIN 40 MG TABLET PO SCH (21:50)
--- NOTE | 2019-11-15 21:50 | NUR ---
GPS RN NOTE PATIENT 218-2 WANTED ROOM HEAT ON BUT ORQUIDEA WAS FEELING TOO WARM. MOVED PATIENT TO ROOM 214-2, SLEEPING AT THIS TIME. NO AGITATION, NO AGGRESSIVE BEHAVIOR NOTED. OFFERED JUICE, TOLERATED WELL. VITALS ARE 112/53, 79, 20, 99.2F, 95 % @ RA. WILL MONITOR CLOSELY FOR ANY CHANGES. BED IN LOW/LOCKED POSITION. BED ALARM IS ON.
--- NOTE | 2019-11-15 22:00 | NUR ---
GPS RN NOTE PATIENT IS INTERMITTENTLY ASLEEP, VERBALIZED THAT SHE WAS FEELING TOO WARM, COLD SPONGING DONE PER PT. REQUEST & SHE FELT BETTER. PO FLUIDS GIVEN, PATIENT IS AWAKE, SAT UP IN BED, TOOK MEDS & SWALLOWED WELL. WILL CHECK BODY TEMP AGAIN. CONTINUING TO MONITOR FOR ANY CHANGE OF CONDITION.
[2019-11-15 22:38] VITALS: BP 104/41
--- NOTE | 2019-11-15 23:01 | NUR ---
GPS RN NOTE BODY TEMP CHECKED & NOTED TO BE 97.6F AT THIS TIME. SLEEPING COMFORTABLY, BREATHING UNLABORED, NO APPARENT DISTRESS NOTED AT THIS TIME. CONTINUING TO MONITOR CLOSELY FOR SAFETY & BEHAVIOR.
--- NOTE | 2019-11-16 04:46 | NUR ---
GPS RN NOTE PATIENT USED THE TOILET TWICE & FELL BACK ASLEEP. BED ALARM ON FOR SAFETY.
[2019-11-16] MEDS: LORAZEPAM 1 MG TABLET PO PRN (06:03)
--- NOTE | 2019-11-16 06:03 | NUR ---
GPS RN NOTE PATIENT IS ANXIOUS, STARTED BANGING ON THE ROOM WINDOW, PRN ATIVAN 1 MG PO GIVEN. MONITORING VERY CLOSELY FOR SAFETY.
--- NOTE | 2019-11-16 06:06 | NUR ---
GPS RN NOTE PATIENT IS SITTING IN A RIOS CHAIR UNDER CLOSE OBSERVATION.
[2019-11-16 08:00] VITALS: BP 149/65
[2019-11-16] MEDS: OLANZAPINE 10 MG TABLET PO SCH ×2 (08:46→20:37)
[2019-11-16] MEDS: ENSURE ENLIVE 237 ML LIQUID (VANILLA) PO SCH ×2 (08:46→17:06)
[2019-11-16] MEDS: METFORMIN 500 MG TABLET PO SCH ×2 (08:46→17:05)
[2019-11-16] MEDS: MULTIVIT W/MINERALS 1 TAB TABLET PO SCH (08:46)
[2019-11-16 16:00] VITALS: BP 132/55
[2019-11-16 20:28] VITALS: BP 124/60
[2019-11-16] MEDS: ATORVASTATIN 40 MG TABLET PO SCH (21:01)
[2019-11-16] MEDS: ZOLPIDEM TARTRATE 5 MG TABLET PO PRN (23:38)
--- NOTE | 2019-11-16 23:38 | NUR ---
GPS-RN PATIENT OFFERED AMBIEN FOR INSOMNIA BUT PATIENT REFUSED, DESPITE OF EXPLANATION THE RISKS AND BENEFITS. MEDICATION WASTED IN PYXIS WITNESSED BY ANOTHER RN.
[2019-11-17 08:00] VITALS: BP 127/57
[2019-11-17] MEDS: LORAZEPAM 1 MG TABLET PO PRN ×2 (08:28→16:31)
[2019-11-17] MEDS: METFORMIN 500 MG TABLET PO SCH ×2 (08:28→18:01)
[2019-11-17] MEDS: OLANZAPINE 10 MG TABLET PO SCH ×2 (08:28→21:21)
[2019-11-17] MEDS: MULTIVIT W/MINERALS 1 TAB TABLET PO SCH (08:28)
[2019-11-17] MEDS: ENSURE ENLIVE 237 ML LIQUID (VANILLA) PO SCH ×2 (09:03→18:02)
[2019-11-17 16:00] VITALS: BP 146/67
[2019-11-17] MEDS: ACETAMINOPHEN 325 MG TABLET PO PRN (16:13)
[2019-11-17 20:00] VITALS: BP 140/71
[2019-11-17] MEDS: ZOLPIDEM TARTRATE 5 MG TABLET PO PRN (21:21)
[2019-11-17] MEDS: ATORVASTATIN 40 MG TABLET PO SCH (21:21)
[2019-11-18 08:00] VITALS: BP 137/72
[2019-11-18] MEDS: METFORMIN 500 MG TABLET PO SCH ×2 (08:41→16:16)
[2019-11-18] MEDS: LORAZEPAM 1 MG TABLET PO PRN ×2 (08:41→21:31)
[2019-11-18] MEDS: OLANZAPINE 10 MG TABLET PO SCH ×2 (08:41→20:29)
[2019-11-18] MEDS: MULTIVIT W/MINERALS 1 TAB TABLET PO SCH (08:41)
[2019-11-18] MEDS: ENSURE ENLIVE 237 ML LIQUID (VANILLA) PO SCH ×2 (08:46→16:16)
--- NOTE | 2019-11-18 10:57 | NUR ---
GPS RN NOTE PATIENT IS ANXIOUS, STARTED BANGING ON THE ROOM WINDOW, PRN ATIVAN 1 MG PO GIVEN. MONITORING VERY CLOSELY FOR SAFETY.
[2019-11-18 16:00] VITALS: BP 153/82
[2019-11-18 20:07] VITALS: BP 160/88
[2019-11-18 20:15] VITALS: BP 157/79
[2019-11-18] MEDS: ATORVASTATIN 40 MG TABLET PO SCH (21:24)
--- NOTE | 2019-11-18 21:34 | NUR ---
GPS RN NOTE PATIENT IS VERY ANXIOUS, GOING BACK & FORTH TO OTHER PATIENT'S ROOMS, PACING IN THE HALLWAY, IN & OUT OF HER BED CONSTANTLY, NON REDIRECTABLE AT THIS TIME. PRN ATIVAN 1 MG PO GIVEN, WILL REASSESS FOR EFFECTIVENESS.
[2019-11-18 22:30] VITALS: BP 144/80
[2019-11-18] MEDS: ZOLPIDEM TARTRATE 5 MG TABLET PO PRN (23:50)
--- NOTE | 2019-11-18 23:56 | NUR ---
GPS RN NOTE PATIENT IS UNABLE TO SLEEP, KEEP WANDERING IN & OUT OF HER ROOM, PRN AMBIEN 5 MG PO GIVEN. WILL REASSESS FOR EFFECTIVENESS.
[2019-11-19 02:30] VITALS: BP 139/78
[2019-11-19 08:00] VITALS: BP 147/72
[2019-11-19] MEDS: MULTIVIT W/MINERALS 1 TAB TABLET PO SCH (08:55)
[2019-11-19] MEDS: METFORMIN 500 MG TABLET PO SCH (08:55)
[2019-11-19] MEDS: OLANZAPINE 10 MG TABLET PO SCH (08:55)
[2019-11-19] MEDS: ENSURE ENLIVE 237 ML LIQUID (VANILLA) PO SCH (08:57)
--- NOTE | 2019-11-19 10:56 | NUR ---
DISCHARGE NOTE: Pt will be discharged at 1:00pm via [facility] to [facility] Address: [address] [place] [address] . Pts son Sam [phone] has been notified and agrees with discharge plan. Pts mood is anxious with congruent affect. Pt denied visual/auditory hallucinations and denied suicidal/homicidal ideation. Pt will be under the care of Psychiatrist: Dr. Sandy [address] [facility] [address] [address] [phone] and Granite Setter: Dr. Robert Varma Address: [address] [facility] [address] [address] . The multidisciplinary exitcare form was done, printed, signed, and given to the patient.
--- NOTE | 2019-11-19 13:56 | NUR ---
GRILL PREP COOK NOTE: PATIENT IS A 79 YEAR OLD FEMALE DISCHARGED TO [facility] [address] [facility] [id number] . PATIENT IS IN STABLE CONDITION. VSS. NO ACUTE DISTRESS NOTED. NO COMPLAINTS. COMPLIANT WITH MEDICATION MANAGEMENT. COOPERATIVE WITH PLAN OF CARE. PSYCHIATRIC TREATMENT PLANS MET. MEDICAL TREATMENT PLANS DEFERRED FOR CONTINUAL MONITORING. DENIES SI/HI VAH AT THE TIME OF DISCHARGE. SKIN INTACT. EDUCATED PATIENT ABOUT AFTERCARE WITH COPY PROVIDED. RETURNED PERSONAL BELONGINGS TO PATIENT. MEDICATIONS RECONCILED WITH DR INGRAM AND DR WHITMAN ALONG WITH PSYCHIATRIC DISCHARGE ORDERS. DISCHARGE PAPERWORK SIGNED. FOR FOLLOW UP WITH PSYCHIATRIST DR INGRAM [address] [facility] [address] [phone] AND TOP PRINTING PRESS OPERATOR DR MERIDA [address] [facility] [address] [facility] [phone] IN 1 WEEK. PATIENT LEFT THE [facility] VIA TRANSPORTATION AT 1345.
== END 2019-11-19 13:45 | DRG 885 ==
LOC: ER 14:18 → GPS 18:48
PROVIDERS: ADMIT Psychiatry & Neurology Psychosomatic Medicine; ATTEND Registered Nurse
DX: F25.1 Schizoaffective disorder, depressive type (principal); F01.50 Vascular dementia, unspecified severity, without behavioral disturbance, psychotic disturbance, mood disturbance, and anxiety; G92 Toxic encephalopathy; E78.5 Hyperlipidemia, unspecified; E11.9 Type 2 diabetes mellitus without complications; F41.9 Anxiety disorder, unspecified; I10 Essential (primary) hypertension; F60.7 Dependent personality disorder; K59.09 Other constipation; Z73.6 Limitation of activities due to disability; Z79.84 Long term (current) use of oral hypoglycemic drugs
CPT/HCPCS: 36415; 80048-TC; 80061-TC; 80076-TC; 80164-TC; 80305; 81000-TC; 82962-TC; 85025-TC; 87081-TC; 87086-TC; 97116-TC; 97530-TC; G0480; J1200; J1630; J2405; J7040

== ENCOUNTER 2019-12-05 12:56 | Inpatient (IN) | payer MEDICARE, OTHER ==
[~2019-12-05] VITALS: Ht 167.6 cm; Wt 63.5 kg
--- NOTE | 2019-12-05 13:18 | NUR ---
[facility], HITTING STAFF AND RESIDENTS WAS GIVEN HALDOL AND ATIVAN PO AT 0900. PATIENT A/OX1-2, VERBALLY RESPONSIVE, NO DISTRESS NOTED.
[2019-12-05 13:19] LABS: BASOPHILS % (AUTO) 0.4 % (0.0-2.0); EOSINOPHILS % (AUTO) 0.8 % (0.0-6.0); HEMATOCRIT 38 % (33-45); HEMOGLOBIN 12.8 g/dL (11.5-14.8); LYMPHOCYTES % (AUTO) 23.6 % (20.0-44.0); MEAN CORPUSCULAR HGB CONC 34 g/dl (31.0-36.0); MEAN CORPUSCULAR VOLUME 89 fL (82-100); MONOCYTES # (AUTO) 0.4 /CMM (0.1-1.30); MONOCYTES % (AUTO) 4.5 % (2.0-12.0); NEUTROPHILS # (AUTO) 5.9 /CMM (1.8-8.9); NEUTROPHILS % (AUTO) 70.7 % (43.0-81.0); PLATELET COUNT (AUTO) 162 /CMM (150-450); RED BLOOD CELL COUNT(AUTO) 4.23 MIL/uL (4.0-5.2); WHITE BLOOD COUNT (AUTO) 8.3 K/uL (4.3-11.0)
--- NOTE | 2019-12-05 13:27 | NUR ---
UA SENT TO LAB.
[2019-12-05 13:33] LABS: CALCIUM, SERUM 9.2 mg/dL (8.5-10.1); CARBON DIOXIDE 27 mmol/L (21-32); CHLORIDE 107 mmol/L (98-107); CREATININE 0.8 mg/dL (0.6-1.3); GLUCOSE 104 mg/dL (74-106); POTASSIUM 4.2 mmol/L (3.5-5.1); SODIUM SERUM 142 mmol/L (136-145); UREA NITROGEN, BLOOD 14 mg/dL (7-18)
[2019-12-05 13:35] LABS: APPEARANCE,URINE Clear (CLEAR); BILIRUBIN,URINE Negative (NEGATIVE); BLOOD, URINE Negative Ery/uL (NEGATIVE); COLOR,URINE Yellow (YELLOW); KETONES,URINE Negative (NEGATIVE); LEUKOCYTE ESTERASE ,URINE Small (NEGATIVE); NITRITE, URINE Negative (NEGATIVE); PH,URINE 6.5 (5.0-8.0); PROTEIN,URINE Negative (NEGATIVE); UGLUCOSE Negative (NEGATIVE); UROBILINOGEN,URINE 0.2 EU/dL (0.2)
[2019-12-05 13:36] LABS: BACTERIA,URINE Few /HPF (None Seen); RBC,URINE 0-2 /HPF (0-2); SQUAMOUS EPITHELIAL CELL,UR Few /HPF (None Seen)
[2019-12-05 13:37] LABS: ACETAMINOPHEN 2 ug/ml (10-30); ALANINE AMINOTRANSFERASE 26 U/L (12-78); ALBUMIN 3.6 g/dL (3.4-5.0); ALCOHOL, BLOOD < 3 mg/dL (0-0); ALKALINE PHOSPHATASE 89 U/L (46-116); ASPARTATE AMINOTRANSFERASE 25 U/L (15-37); BILIRUBIN,DIRECT 0.1 mg/dL (0.0-0.2); BILIRUBIN,TOTAL 0.5 mg/dL (0.2-1.0); SALICYLATE 1.1 mg/dL (2.8-20.0); TOTAL PROTEIN, SERUM 6.9 g/dL (6.4-8.2)
--- NOTE | 2019-12-05 13:45 | NUR ---
CALLED CARE PARTNER ANT FOR EVAL.
[2019-12-05] MEDS ORDERED: DIPH50VI18 IM (14:05)
[2019-12-05] MEDS ORDERED: MULT-447 PO (14:05)
[2019-12-05] MEDS ORDERED: OLAN10TA3 PO (14:05)
[2019-12-05] MEDS ORDERED: ZOLP5TAB2 PO (14:05)
[2019-12-05] MEDS ORDERED: LORA-259 PO (14:05)
[2019-12-05] MEDS ORDERED: HALO5AMP3 IM (14:05)
--- NOTE | 2019-12-05 15:00 | NUR ---
ART CONVEYOR MAN AT BEDSIDE FOR EVAL.
--- NOTE | 2019-12-05 15:11 | NUR ---
NURSING SUP GAVE GPS 219-A.
--- NOTE | 2019-12-05 15:28 | NUR ---
REPORT GIVEN TO BULL WHIPPLE.
--- NOTE | 2019-12-05 16:11 | NUR ---
PATIENT TAKEN TO [facility]. IN STABLE CONDITION.
--- NOTE | 2019-12-05 16:15 | NUR ---
NURSING ADMISSION NOTE: PT WAS ADMITTED TODAY AT 1615 FROM [facility] ER, ORIGINALLY FROM [facility] ON 5150 FOR GD. PER HOLD, "PT SENT FROM [facility] DUE TO AGITATION AND NON COMPLIANT WITH CARE. DR. INGRAM THE PT'S PSYCHIATRIST DIRECTED THE PT TO THIS ED FOR GPS ADMISSION. PT WAS STRIKING OUT AT STAFF. HALDOL AND BENADRYL IM WAS INEFFECTIVE. PT KNOWS HER NAME AND THAT THIS IS A HOSPITAL ONLY OTHERWISE PATIENT IS DISORIENTED AND CONFUSED AND DISORGANIZED. PT IS AGITATED PT'S JUDGEMENT IS IMPAIRED AND HAS POOR INSIGHT AND IMPULSE CONTROL. PT APPEARS DEPRESSED AND HAS A BLUNTED AFFECT. PT IS NOT ABLE TO PROVIDE FOR HER FOOD SENIOR LIVING OR CLOTHING DUE TO A MENTAL DISORDER AND THE FACILITY IS UNABLE TO PROVIDE SAME DUE TO HER BEHAVIOR." PT IS A&OX1, CONFUSED, DISORIENTED, DISORGANIZED, UNCOOPERATIVE, MED COMPLIANT, DENIES SI/HI/AVH AT THIS TIME. PT WAS UNCOOPERATIVE WITH ADMISSION PROCESS AND REFUSED TO SIGN ADMISSION PAPERWORK. PT REFUSED SKIN ASSESSMENT AND PHOTOS TO BE TAKEN. PT ALSO REFUSED ACCUCHECK. DR. INGRAM HAS BEEN NOTIFIED OF PTS ADMISSION WITH ADMISSION ORDERS NOTED AND CARRIED OUT. DR. OLIVARES HAS BEEN NOTIFIED OF PTS ADMISSION WELL AND STATES HE WILL DO THE MED RECON. PTS FAMILY HAS BEEN NOTIFIED WELL. VS: 134/54, 71, 18, 98%RA, 97.1, 0/10 PAIN. WILL CONTINUE TO MONITOR Q15 MINS FOR SAFETY AND BEHAVIOR.
[2019-12-05] MEDS ORDERED: BLOOD SUGAR DIAGNOSTIC 1 EACH STRIP IN ONE (17:30)
[2019-12-05] MEDS ORDERED: MAG HYDROX/AL HYDROX/SIMETH 30 ML UDC PO PRN (17:30)
--- NOTE | 2019-12-05 17:45 | NUR ---
PT REFUSE ONE TIME BLOOD SUGAR CHECK.
[2019-12-05 18:16] LABS: THYROID STIMULATING HORMONE 1.469 uIU/mL (0.358-3.74)
[2019-12-05] MEDS: OLANZAPINE 10 MG TABLET PO SCH (18:21)
[2019-12-05] MEDS ORDERED: BISACODYL SUPP (10 MG) 10 MG/SUPP.RECT SUPP.RECT RC PRN (19:00)
[2019-12-05] MEDS ORDERED: ZOLPIDEM TARTRATE 5 MG TABLET PO PRN (19:00)
[2019-12-05] MEDS ORDERED: NA PHOS,M-B/NA PHOS,DI-BA 1 EA ENEMA RC PRN (19:00)
[2019-12-05] MEDS ORDERED: ACETAMINOPHEN 325 MG TABLET PO PRN (19:00)
[2019-12-05] MEDS ORDERED: MAGNESIUM HYDROXIDE 30 ML UDC PO PRN (19:00)
[2019-12-05 19:44] VITALS: BP 103/50
[2019-12-05 20:00] VITALS: BP 103/50
[2019-12-05] MEDS: LITHIUM CARBONATE 150 MG CAPSULE PO SCH (21:36)
[2019-12-05] MEDS: ATORVASTATIN 40 MG TABLET PO SCH (22:00)
--- NOTE | 2019-12-05 22:55 | NUR ---
GPS RN NOTE PATIENT REFUSED SKIN ASSESSMENT, STATED, I AM OK & WANTED THE NURSE TO GO AWAY". GOT AGITATED & RESTLESS WHEN APPROACHED FOR SKIN ASSESSMENT.
--- NOTE | 2019-12-06 00:53 | NUR ---
GPS RN NOTE PATIENT IS SLEEPING AT THIS TIME. CALM, RELAXED. WILL CONTINUE TO MONITOR FOR ANY CHANGES.
--- NOTE | 2019-12-06 06:30 | NUR ---
PATIENT REFUSED AM LABS DESPITE OF RISKS & BENEFITS EXPLANATIONS X 3. WILL ENDORSE TO AM RN.
[2019-12-06 08:00] VITALS: BP 101/60
[2019-12-06] MEDS: MULTIVITAMINS,THERAGRAN 1 UDTAB TABLET PO SCH (08:30)
[2019-12-06] MEDS: METFORMIN 500 MG TABLET PO SCH ×2 (08:30→17:03)
[2019-12-06] MEDS: OLANZAPINE 10 MG TABLET PO SCH ×2 (08:30→17:03)
[2019-12-06] MEDS: LITHIUM CARBONATE 150 MG CAPSULE PO SCH ×2 (08:32→21:31)
--- NOTE | 2019-12-06 10:50 | NUR ---
RT NOTE: PATIENT REFUSED EKG. RN (BUSTER) NOTIFIED.
--- NOTE | 2019-12-06 11:27 | NUR ---
FACILITY CONTACT: SW contacted [facility] Address: [address] [place] [address] and spoke with Mojgan, creative services coordinator who stated that pt is currently on a 7 day bed hold and if discharged after 7 days the facility will have to reevaluate if they are able to accept pt back.
--- NOTE | 2019-12-06 11:32 | NUR ---
FAMILY CONTACT: SW contacted pts son Sam [phone] and left a voicemail for callback.
--- NOTE | 2019-12-06 11:57 | NUR ---
INITIAL DISCHARGE PLAN: ISMA contacted [facility] Address: [address], [place] [address] and spoke with Mojgan, regulatory compliance coordinator who stated that pt is currently on a 7 day bed hold and if discharged after 7 days the facility will have to reevaluate if they are able to accept pt back. Pt may need alternative SNF placement. ISMA will help form a safe and proper discharge in collaboration with .
[2019-12-06] MEDS: LORAZEPAM 1 MG TABLET PO PRN (14:44)
--- NOTE | 2019-12-06 14:44 | NUR ---
RN NOTE: PT AGITATED. YELLING AND SCREAMING. NOT ABLE TO REDIRECT. MED WITH ATIVAN 1MG PO
--- NOTE | 2019-12-06 14:47 | NUR ---
INDIVIDUAL INTERVENTION: SW attempted to provide crisis clinical intervention to pt as pt was in a psychotic state responding to internal stimuli yelling, screaming, hitting the riley, hitting staff, and hitting herself. SW called charge nurse to assist.
[2019-12-06] MEDS ORDERED: OLANZAPINE 10 MG VIAL IM ONE (15:30)
[2019-12-06] MEDS ORDERED: LORAZEPAM INJ 2 MG/ML VIAL IM PRN (15:30)
--- NOTE | 2019-12-06 15:40 | NUR ---
RN NOTE: 12/06/2019 - 14:40 PT BECAME AGITATED, YELLING AND SCREAMING. SLAMMING HANDS ON TABLE. UNABLE TO BE REDIRECTED. MOVED TO A QUIETER ENVIRONMENT AND MEDICATED WITH ATIVAN 1MG PO PRN. AT 15:40 PT'S BEHAVIOR ESCALATED. PT BEGAN TO BANG HANDS ON TABLE UNCONTROLLABLY. PT'S SCREAMING ESCALATED AND BECAME MORE INTENSE POSING A DANGER TO HERSELF. PT WAS UNABLE TO BE REDIRECTED. PT CONT'D TO BANG HER HANDS ON THE TABLE. PT WAS DELUSIONAL AND PARANOID. DR. INGRAM WAS CALLED AND AN ORDER FOR ZYPREXA 10MG IM X 1 AND ATIVAN 1MG IM X 1 WAS ORDERED. WITH THE HELP OF STAFF MEMBERS ZYPREXA 10MG AND ATIVAN 1MG WAS GIVEN TO PT'S RIGHT DELTOID. CLOSE MONITORING OF PATIENT WAS IMPLEMENTED. PT BECAME CALM AND COOPERATIVE 5 MINUTES AFTER SHOT. PT STOPPED BANGING HER HANDS AND STOPPED YELLING AND SCREAMING. PT BEGAN TO WRITE AND DRAW ON PAPER. WHEN ASKED HOW PT WAS FEELING PT EXPRESSED "GOOD". PT BEGAN TO COMPLY WITH PLAN OF CARE AND WAS REDIRECTIBLE, CALM AND COOPERATIVE. Addendum: 12/06/19 at 7370 by BUSTER GREGORY RN RN NOTE: ERROR IM GIVEN AT [id number]
[2019-12-06] MEDS: LORAZEPAM INJ 2 MG/ML VIAL IM SCH ×2 (16:13→16:17)
[2019-12-06] MEDS ORDERED: LORAZEPAM INJ 2 MG/ML VIAL IM ONE (16:30)
--- NOTE | 2019-12-06 16:50 | NUR ---
RN NOTE: PT SITTING CALM AND COOPERATIVE. BLOOD DRAW PERFORMED WITH PATIENT'S APPROVAL. PT IS SITTING WRITING. NO AGITATION OR IRRITATION NOTED. WHEN ASKED HOW PT WAS FEELING, PT STATED "GOOD". 1 HOUR FACE TO FACE OBSERVATION IMPLEMENTED. WILL CONT TO WATCH PT CLOSELY FOR SE OF IM EMERGENCY MEDICATION AND AGITATION AND BEHAVIORS PLACING PT AT RISK TO SELF.
[2019-12-06 17:37] LABS: ALBUMIN 3.9 g/dL (3.4-5.0); BILIRUBIN,TOTAL 0.5 mg/dL (0.2-1.0); CALCIUM, SERUM 9.6 mg/dL (8.5-10.1); CREATININE 0.7 mg/dL (0.6-1.3); POTASSIUM 3.9 mmol/L (3.5-5.1); TOTAL PROTEIN, SERUM 7.4 g/dL (6.4-8.2)
[2019-12-06 17:39] LABS: CHOLESTEROL 97 mg/dL (<200); HDL CHOLESTEROL 45 mg/dL (40-60); LDL 44 mg/dL (0-99); TRIGLYCERIDES 55 mg/dL (30-150)
[2019-12-06 20:32] VITALS: BP 122/55
[2019-12-06] MEDS: ATORVASTATIN 40 MG TABLET PO SCH (21:31)
[2019-12-06 22:46] VITALS: BP 101/60
[2019-12-06 22:56] VITALS: BP 101/60
[2019-12-07 08:00] VITALS: BP 109/53
[2019-12-07] MEDS: LITHIUM CARBONATE 150 MG CAPSULE PO SCH ×2 (08:21→20:12)
[2019-12-07] MEDS: OLANZAPINE 10 MG TABLET PO SCH ×3 (08:21→17:02)
[2019-12-07] MEDS: METFORMIN 500 MG TABLET PO SCH ×2 (08:21→17:03)
[2019-12-07] MEDS: MULTIVITAMINS,THERAGRAN 1 UDTAB TABLET PO SCH (08:21)
[2019-12-07] MEDS: LORAZEPAM 1 MG TABLET PO PRN ×2 (08:24→20:12)
--- NOTE | 2019-12-07 08:24 | NUR ---
RN NOTE: PATIENT IS ANXIOUS, PRN ATIVAN GIVEN
[2019-12-07] MEDS: MAGNESIUM HYDROXIDE 30 ML UDC PO PRN (12:31)
--- NOTE | 2019-12-07 12:31 | NUR ---
PATIENT C/O CONSTIPATION. STATES SHE HASNT GONE IN 3 DAYS. MOM PRN PO GIVEN WITH PRUNE JUICE. WILL CONTINUE TO MONITOR FOR BM
[2019-12-07 16:00] VITALS: BP 133/73
[2019-12-07] MEDS: ACETAMINOPHEN 325 MG TABLET PO PRN (20:12)
--- NOTE | 2019-12-07 20:12 | NUR ---
RN NOTE: PT MED WITH ATIVAN FOR ANXIETY
[2019-12-07 20:22] VITALS: BP 123/50
[2019-12-07] MEDS: ATORVASTATIN 40 MG TABLET PO SCH (22:38)
[2019-12-08 08:00] VITALS: BP 100/57
[2019-12-08] MEDS: LITHIUM CARBONATE 150 MG CAPSULE PO SCH ×2 (08:16→21:34)
[2019-12-08] MEDS: OLANZAPINE 10 MG TABLET PO SCH ×2 (08:16→16:00)
[2019-12-08] MEDS: LACTULOSE 10 G/15 ML UDC (PYXIS) PO PRN (08:16)
[2019-12-08] MEDS: METFORMIN 500 MG TABLET PO SCH ×2 (08:16→16:00)
[2019-12-08] MEDS: MULTIVITAMINS,THERAGRAN 1 UDTAB TABLET PO SCH (08:16)
--- NOTE | 2019-12-08 08:19 | NUR ---
PATIENT STATES SHE IS STILL HAVING CONSTIPATION. PRN LACTULOSE GIVEN.
--- NOTE | 2019-12-08 13:21 | NUR ---
PATIENT STATES SHE IS STILL CONSTIPATED. PRN SUPPOSITORY GIVEN. WILL MONITOR FOR BM.
--- NOTE | 2019-12-08 15:38 | NUR ---
PATIENT STATES THAT SHE STILL HASNT HAD A BM. FLEET ENEMA GIVEN. STILL NO BM. TRIED TO DIGITALLY REMOVE BUT FELT NO IMPACTION. WILL CONTINUE TO MONITOR PATIENT AND IF NO BM, WILL CONTACT MD AGAIN.
[2019-12-08] MEDS: MAGNESIUM HYDROXIDE 30 ML UDC PO PRN (15:42)
--- NOTE | 2019-12-08 15:50 | NUR ---
GAVE PATIENT MOM PRN WITH PRUNE JUICE TO HELP WITH THE CONSTIPATION. WILL KEEP MONITORING PATIENT
[2019-12-08 16:00] VITALS: BP 120/67
[2019-12-08] MEDS: LORAZEPAM 1 MG TABLET PO PRN (16:04)
--- NOTE | 2019-12-08 16:05 | NUR ---
PATIENT C/O ANXIETY. PRN ATIVAN GIVEN.
[2019-12-08] MEDS: ACETAMINOPHEN 325 MG TABLET PO PRN (16:51)
--- NOTE | 2019-12-08 16:51 | NUR ---
PATIENT C/O HEADACHE. PRN TYLENOL GIVEN.
--- NOTE | 2019-12-08 18:34 | NUR ---
CONTACTED BAUDILIO CRENSHAWCUAL TO INFORM HER OF MY INTERVENTIONS REGARDING HER CONSTIPATION. AWAITING NEW ORDERS TO RESOLVE HER CONSTIPATION. Addendum: 12/08/19 at 1839 by DANIELA BAILEY RN NEW ORDER FOR MIRRICHARD X1. IF NO MITCHELL VIRK FOR TOMORROW 12/09/2019
[2019-12-08] MEDS ORDERED: POLYETHYLENE GLYCOL 3350 17 GM POWD.PACK PO ONE (19:00)
[2019-12-08 20:00] VITALS: BP 134/68
[2019-12-08] MEDS: ZOLPIDEM TARTRATE 5 MG TABLET PO PRN (21:34)
[2019-12-08] MEDS: ATORVASTATIN 40 MG TABLET PO SCH (21:34)
--- NOTE | 2019-12-09 06:21 | NUR ---
GPS RN NOTE PT REFUSED AM LABS, WILL CONT. TO MONITOR AND ENDORSE TO NEXT SHIFT.
[2019-12-09 08:00] VITALS: BP 157/98
[2019-12-09] MEDS: MULTIVITAMINS,THERAGRAN 1 UDTAB TABLET PO SCH (08:15)
[2019-12-09] MEDS: METFORMIN 500 MG TABLET PO SCH ×2 (08:15→16:21)
[2019-12-09] MEDS: OLANZAPINE 10 MG TABLET PO SCH ×2 (08:15→16:20)
[2019-12-09] MEDS: LITHIUM CARBONATE 150 MG CAPSULE PO SCH ×2 (08:15→21:47)
[2019-12-09] MEDS: LACTULOSE 10 G/15 ML UDC (PYXIS) PO PRN (14:08)
[2019-12-09 16:00] VITALS: BP 118/63
[2019-12-09] MEDS: MAGNESIUM HYDROXIDE 30 ML UDC PO PRN (16:21)
--- NOTE | 2019-12-09 16:31 | NUR ---
MOM GIVEN FOR CONSTIPATION
[2019-12-09 20:13] VITALS: BP 126/96
[2019-12-09] MEDS: ATORVASTATIN 40 MG TABLET PO SCH (21:47)
[2019-12-09] MEDS: POLYETHYLENE GLYCOL 3350 17 GM POWD.PACK PO SCH (21:48)
[2019-12-09] MEDS: SENNOSIDES 8.6 MG TABLET PO SCH (21:48)
[2019-12-09] MEDS: ZOLPIDEM TARTRATE 5 MG TABLET PO PRN (22:16)
[2019-12-10 08:00] VITALS: BP 105/66
[2019-12-10] MEDS: LITHIUM CARBONATE 150 MG CAPSULE PO SCH ×2 (09:15→21:33)
[2019-12-10] MEDS: OLANZAPINE 10 MG TABLET PO SCH ×2 (09:15→16:34)
[2019-12-10] MEDS: METFORMIN 500 MG TABLET PO SCH ×2 (09:15→16:33)
[2019-12-10] MEDS: MULTIVITAMINS,THERAGRAN 1 UDTAB TABLET PO SCH (09:15)
[2019-12-10] MEDS: LORAZEPAM 1 MG TABLET PO PRN (10:59)
--- NOTE | 2019-12-10 10:59 | NUR ---
RN NOTE: PT STARTED TO SCREAM IN HER BEDROOM DUE TO AUDITORY HALLUCINATIONS. MED WITH ATIVAN 1MG PT PRN
--- NOTE | 2019-12-10 13:30 | NUR ---
SNF: ISMA faxed clinicals to Anna, outpatient coordinator at [facility] Address: [address], [place] [address] , ISMA informed her pt will be discharged tomorrow 12/11/19. Anna stated pt is still on 7 bed hold and bed hold is up tomorrow 12/11/19
--- NOTE | 2019-12-10 14:46 | NUR ---
FAMILY CONTACT: ISMA contacted pts son Sam [phone] and informed him pt will be discharged tomorrow 12/11/19 back to [facility]. Son agreed with discharge plan.
[2019-12-10 16:00] VITALS: BP 119/61
[2019-12-10 20:42] VITALS: BP 104/51
[2019-12-10] MEDS: POLYETHYLENE GLYCOL 3350 17 GM POWD.PACK PO SCH (21:34)
[2019-12-10] MEDS: ATORVASTATIN 40 MG TABLET PO SCH (21:34)
[2019-12-10] MEDS: SENNOSIDES 8.6 MG TABLET PO SCH (21:34)
[2019-12-10] MEDS: ZOLPIDEM TARTRATE 5 MG TABLET PO PRN (22:31)
[2019-12-11 08:00] VITALS: BP 141/52
[2019-12-11] MEDS: LITHIUM CARBONATE 150 MG CAPSULE PO SCH (08:54)
[2019-12-11] MEDS: METFORMIN 500 MG TABLET PO SCH (08:54)
[2019-12-11] MEDS: MULTIVITAMINS,THERAGRAN 1 UDTAB TABLET PO SCH (08:54)
[2019-12-11] MEDS: OLANZAPINE 10 MG TABLET PO SCH (08:54)
--- NOTE | 2019-12-11 10:40 | NUR ---
DISCHARGE NOTE: Pt will be discharged at 1:00pm via [facility] to [facility] Address: [address] [place] [address] . Pts son Sam [phone] has been notified and agrees with discharge plan. Pts mood is dysphoric with congruent affect at baseline. Pt denied suicidal/homicidal ideation and denied visual/auditory hallucinations. Pt will be under the care of Psychiatrist: Dr. Sandy [id number] [facility] [address], [place] [address] [phone] and Coremaking Machine Operator: Dr. Robert Varma Address: [address] [facility] [address], [place] [address] Phone: . The multidisciplinary exit care form was done, printed, signed, and given to the patient.
--- NOTE | 2019-12-11 12:40 | NUR ---
RN NOTE: REPORT GIVEN TO EBONIE WHIPPLE AT [facility] [phone]
--- NOTE | 2019-12-11 13:10 | NUR ---
CELEBRITY MANAGER NOTE: 79 YEAR OLD FEMALE DISCHARGED TO [facility] IN STABLE CONDITION. COMPLIANT WITH MEDIATIONS, COOPERATIVE WITH TREATMENT PLAN. PATIENT DEINIES SI./HI AND INSTRUCTED TO TO GO THE NEAREST ER IF DEVEELOPING SI/HI. BEHAVIOR IMPROVED, PSYCHIATRIC TREATMENT PLANS MET, MEDICAL TREATMENT PLANS DEFERRED FOR CONTINUAL MONITORRING.EDUCATED PT ABOUT AFTER CARE PLAN AND COPY PROVIDED.RETURNED PERSONAL BELONGINGS TO PATIENT. MEDICATIONS RECONCILED WITH DR MENESES AND DR WHITMAN. REPORT GIVEN TO EBONIE RN AT [facility] FOR CONTINUITY OF CARE PT SIGNED DISCHARGE PAPERWORK SKIN INTACT UPON ADMISSION AND DISCHARGE. PT LEFT THE UNIT VIA GURNEY WITH EMS PRESENT VSS 137?80. 72, 98%RA 18 R AND 97.9 TEMP. PT LEFT THE UNIT AT 13;10.
== END 2019-12-11 13:10 | DRG 885 ==
LOC: ER 12:58 → GPS 15:28
PROVIDERS: ADMIT Psychiatry & Neurology Psychiatry; ATTEND Family Medicine
DX: F25.1 Schizoaffective disorder, depressive type (principal); E11.65 Type 2 diabetes mellitus with hyperglycemia; G93.41 Metabolic encephalopathy; E46 Unspecified protein-calorie malnutrition; I10 Essential (primary) hypertension; K59.00 Constipation, unspecified; F60.7 Dependent personality disorder; F60.89 Other specific personality disorders; E78.5 Hyperlipidemia, unspecified; M62.50 Muscle wasting and atrophy, not elsewhere classified, unspecified site; Z79.84 Long term (current) use of oral hypoglycemic drugs; Z79.899 Other long term (current) drug therapy; Z91.14 Patient's other noncompliance with medication regimen; Z81.8 Family history of other mental and behavioral disorders; Z91.19 Patient's noncompliance with other medical treatment and regimen; Z91.11 Patient's noncompliance with dietary regimen; Z73.6 Limitation of activities due to disability
CPT/HCPCS: 36415; 74018; 80048-TC; 80053-TC; 80061-TC; 80076-TC; 80305; 81000-TC; 84439-TC; 84443-TC; 84481; 85025-TC; 87081-TC; 87086-TC; 87186-TC; 97116-TC; 97530-TC; G0480; J2060; J3490

== ENCOUNTER 2019-12-14 15:56 | Inpatient (IN) | payer MEDICARE, OTHER ==
[~2019-12-14] VITALS: Ht 162.6 cm; Wt 68.0 kg
[~2019-12-14 15:56] MED LIST changes: +DIPH50VI18 IM; -LACT-58 PO; -MULT-1168 PO; +MULT-447 PO; -PALI234D IM; +ZOLP5TAB2 PO
--- NOTE | 2019-12-14 16:08 | NUR ---
SANJIV Ambulife [id number] from [facility] for psych eval"was trying to leave the facility" pt to bed 15, pt awake, alert, -sob, nad noted, vss, pending md desouza
[2019-12-14 16:29] LABS: BASOPHILS % (AUTO) 0.5 % (0.0-2.0); EOSINOPHILS % (AUTO) 0.6 % (0.0-6.0); HEMATOCRIT 38 % (33-45); HEMOGLOBIN 12.8 g/dL (11.5-14.8); LYMPHOCYTES % (AUTO) 25.5 % (20.0-44.0); MEAN CORPUSCULAR HGB CONC 34 g/dl (31.0-36.0); MEAN CORPUSCULAR VOLUME 89 fL (82-100); MONOCYTES # (AUTO) 0.5 /CMM (0.1-1.30); MONOCYTES % (AUTO) 6.3 % (2.0-12.0); NEUTROPHILS # (AUTO) 5.2 /CMM (1.8-8.9); NEUTROPHILS % (AUTO) 67.1 % (43.0-81.0); PLATELET COUNT (AUTO) 169 /CMM (150-450); RED BLOOD CELL COUNT(AUTO) 4.23 MIL/uL (4.0-5.2); WHITE BLOOD COUNT (AUTO) 7.8 K/uL (4.3-11.0)
[2019-12-14] MEDS ORDERED: LORA-259 PO (16:32)
[2019-12-14] MEDS ORDERED: OLAN15TA3 PO (16:32)
[2019-12-14] MEDS ORDERED: POLY17PO4 PO (16:32)
[2019-12-14] MEDS ORDERED: SENN-261 PO (16:32)
[2019-12-14] MEDS ORDERED: MAG30ORA PO (16:32)
[2019-12-14] MEDS ORDERED: LITH300T3 PO (16:32)
[2019-12-14 16:39] LABS: CALCIUM, SERUM 9.5 mg/dL (8.5-10.1); CARBON DIOXIDE 28 mmol/L (21-32); CHLORIDE 107 mmol/L (98-107); CREATININE 0.8 mg/dL (0.6-1.3); GLUCOSE 121 mg/dL (74-106); POTASSIUM 4.4 mmol/L (3.5-5.1); SODIUM SERUM 141 mmol/L (136-145); UREA NITROGEN, BLOOD 14 mg/dL (7-18)
[2019-12-14 16:44] LABS: ALANINE AMINOTRANSFERASE 33 U/L (12-78); ALBUMIN 3.8 g/dL (3.4-5.0); ALCOHOL, BLOOD < 3 mg/dL (0-0); ALKALINE PHOSPHATASE 93 U/L (46-116); ASPARTATE AMINOTRANSFERASE 18 U/L (15-37); BILIRUBIN,DIRECT 0.1 mg/dL (0.0-0.2); BILIRUBIN,TOTAL 0.4 mg/dL (0.2-1.0); TOTAL PROTEIN, SERUM 7.2 g/dL (6.4-8.2)
[2019-12-14 16:46] LABS: ACETAMINOPHEN 0 ug/ml (10-30); SALICYLATE 1.2 mg/dL (2.8-20.0)
--- NOTE | 2019-12-14 17:10 | NUR ---
CALLED [facility] FOR EVALUATION.
--- NOTE | 2019-12-14 17:28 | NUR ---
NURSING SUP GAVE GPS BED 212-B.
--- NOTE | 2019-12-14 17:31 | NUR ---
[facility] AT BEDSIDE.
[2019-12-14 17:43] LABS: APPEARANCE,URINE Slightly Cloudy (CLEAR); BILIRUBIN,URINE Negative (NEGATIVE); BLOOD, URINE Trace-intact Ery/uL (NEGATIVE); COLOR,URINE Yellow (YELLOW); KETONES,URINE Negative (NEGATIVE); LEUKOCYTE ESTERASE ,URINE Small (NEGATIVE); NITRITE, URINE Negative (NEGATIVE); PROTEIN,URINE Negative (NEGATIVE); UGLUCOSE Negative (NEGATIVE); UROBILINOGEN,URINE 0.2 EU/dL (0.2)
[2019-12-14 17:58] LABS: BACTERIA,URINE Few /HPF (None Seen); SQUAMOUS EPITHELIAL CELL,UR Few /HPF (None Seen); WBC,URINE 21-50 /HPF (0-3)
--- NOTE | 2019-12-14 19:30 | NUR ---
report given to faa nurse at gps, pt will be transported to gps
[2019-12-14] MEDS ORDERED: CEPHALEXIN MONOHYDRATE 500 MG CAPSULE PO ONE (19:57)
[2019-12-14] MEDS ORDERED: CEPHALEXIN MONOHYDRATE 250 MG CAPSULE PO SCH (20:00)
[2019-12-14] MEDS ORDERED: MAG HYDROX/AL HYDROX/SIMETH 30 ML UDC PO PRN (21:00)
--- NOTE | 2019-12-14 21:45 | NUR ---
GPS RN NOTE, PATIENT NEEDS A MEDICATION RECONCILIATION. PAGED [facility] AND INFORMED SAMEERA MAHMOOD OF MY FINDINGS. SAMEERA MAHMOOD SAID HE WILL APPROVE PATIENT MEDICATION RECONCILIATION SOON POSSIBLE. WILL CONTINUE TO MONITOR THIS PATIENT WITH THE HELP OF STAFF.
[2019-12-14] MEDS ORDERED: BLOOD SUGAR DIAGNOSTIC 1 EACH STRIP IN ONE (22:00)
[2019-12-14] MEDS: MAGNESIUM HYDROXIDE 30 ML UDC PO PRN (22:14)
[2019-12-14] MEDS: ZOLPIDEM TARTRATE 5 MG TABLET PO PRN (22:15)
[2019-12-14 23:52] VITALS: BP 108/50
--- NOTE | 2019-12-15 02:01 | NUR ---
GPS RN NOTE ADMITTED A 79 YO FEMALE [facility], INITIALLY FROM [facility] ON HOLD 5150 PLACED 12/14/2019 @1812 FOR DTO/GD. PER HOLD PT ATTEMPTED TO [facility]OPE FROM FACILITY 3 TIMES AND WAS FOUND OUTSIDE THE BUILDING. WHEN STAFF TRIED TO REDIRECT PT BACK INSIDE PT BECAME AGGRESSIVE AND STARTED HITTING AND GRABBED STAFF. UPON FACE TO FACE EVALUATION, PT PRESENTS ALERT AND ORIENTED X1-2, UNKEPT, APPEARS DEPRESSED, DISORIENTED AND DISORGANIZED. COMPLAINING OF CONSTIPATION, MOM 30ML GIVEN PO. LABILE, IRRITABLE, ANXIOUS, AND GUARDED. REFUSED TO SIGN ADMISSION PAPERS, PT BELONGINGS AND CONTRABAND CHECKED. PT ADVISED OF HOLD, PT RIGHT DISCUSSED AND PT HAND BOOK PROVIDED. GUIDE TO PRESCRIPTION MEDICATION GIVEN. PT WILL BE UNDER THE CARE OF DR INGRAM PSYCHIATRIST AND DR CUMMINGS INTERNAL MEDICINE. PT ORIENTED TO UNIT, STAFF, DOCTORS, CARE PLAN AND UNIT POLICIES. DRS NOTIFIED OF PT ADMISSION. MED RECONCILIATION DONE. ACCUCHEK DONE BS 85, MRSA BOTH NARES DONE. Q 15 MINUTES CHECK INITIATED, FALL AND SAFETY PRECAUTION INITIATED. WILL CONTINUE TO MONITOR FOR MOOD, SAFETY AND BEHAVIOR.
[2019-12-15 08:00] VITALS: BP 113/61
[2019-12-15] MEDS: LORAZEPAM 1 MG TABLET PO PRN ×2 (08:26→15:29)
[2019-12-15] MEDS ORDERED: BISACODYL SUPP (10 MG) 10 MG/SUPP.RECT SUPP.RECT RC ONE (12:00)
[2019-12-15] MEDS ORDERED: MAGNESIUM HYDROXIDE 30 ML UDC PO PRN (12:00)
[2019-12-15] MEDS ORDERED: BISACODYL (5 MG) 5 MG TABLET.DR PO PRN (12:00)
[2019-12-15] MEDS: LITHIUM CARBONATE 150 MG CAPSULE PO SCH ×2 (12:07→20:14)
[2019-12-15] MEDS: BENZTROPINE MESYLATE (1 MG) 1 MG TABLET PO SCH ×2 (12:07→20:14)
[2019-12-15] MEDS: risperiDONE 1 MG TABLET PO SCH ×2 (12:07→20:14)
[2019-12-15] MEDS: MAGNESIUM HYDROXIDE 30 ML UDC PO PRN (12:07)
[2019-12-15] MEDS: DOCUSATE SODIUM 250 MG CAPSULE PO SCH (12:07)
[2019-12-15] MEDS: CEPHALEXIN MONOHYDRATE 500 MG CAPSULE PO SCH (12:41)
[2019-12-15] MEDS: ACETAMINOPHEN 325 MG TABLET PO PRN (14:50)
--- NOTE | 2019-12-15 14:58 | NUR ---
GPS RN NOTE: PATIENT C/O CONSTIPATION AND STOMACH PAIN. MOM ADMIN LAST NIGHT AND THIS AM. SUPPOSITORY ALSO ADMINISTERED WITH NO EFFECT. DIGITAL EXTRACTION ATTEMPTED BUT NO RESULTS. PAGED HELDER MEYERS TO INFORM.
[2019-12-15 16:00] VITALS: BP 146/55
[2019-12-15] MEDS ORDERED: OLANZAPINE 10 MG VIAL IM STA (17:04)
--- NOTE | 2019-12-15 17:18 | NUR ---
GPS RN NOTE: PATIENT AGITATED, YELLING, NOT REDIRECTABLE, BANGING ON WINDOWS AND TABLES. PO ATIVAN ADMINISTERED 90 MIN PRIOR FOR INCREASED ANXIETY WITH NO VISIBLE EFFECT. DUE TO INCREASED DISTRESS NOTIFED DR TSE. ORDER FOR ZYPREXA 5MG IM ONCE GIVEN. ADMINISTERED.
[2019-12-15] MEDS: ZOLPIDEM TARTRATE 5 MG TABLET PO PRN (20:15)
--- NOTE | 2019-12-15 20:15 | NUR ---
RN NOTE: PT MEDICATED WITH AMBIEN PO FOR INSOMNIA
[2019-12-15 20:56] VITALS: BP 151/75
[2019-12-16 07:23] LABS: BASOPHILS % (AUTO) 0.3 % (0.0-2.0); EOSINOPHILS % (AUTO) 2.1 % (0.0-6.0); HEMATOCRIT 36 % (33-45); HEMOGLOBIN 12.2 g/dL (11.5-14.8); LYMPHOCYTES # (AUTO) 1.9 /CMM (0.8-4.8); LYMPHOCYTES % (AUTO) 39.7 % (20.0-44.0); MEAN CORPUSCULAR HGB CONC 34 g/dl (31.0-36.0); MEAN CORPUSCULAR VOLUME 88 fL (82-100); MONOCYTES # (AUTO) 0.4 /CMM (0.1-1.30); MONOCYTES % (AUTO) 7.4 % (2.0-12.0); NEUTROPHILS # (AUTO) 2.4 /CMM (1.8-8.9); NEUTROPHILS % (AUTO) 50.5 % (43.0-81.0); PLATELET COUNT (AUTO) 145 /CMM (150-450); RED BLOOD CELL COUNT(AUTO) 4.07 MIL/uL (4.0-5.2); WHITE BLOOD COUNT (AUTO) 4.8 K/uL (4.3-11.0)
[2019-12-16 07:33] LABS: ALANINE AMINOTRANSFERASE 41 U/L (12-78); ALBUMIN 3.6 g/dL (3.4-5.0); ALKALINE PHOSPHATASE 95 U/L (46-116); ASPARTATE AMINOTRANSFERASE 24 U/L (15-37); BILIRUBIN,TOTAL 0.8 mg/dL (0.2-1.0); CALCIUM, SERUM 9.4 mg/dL (8.5-10.1); CARBON DIOXIDE 24 mmol/L (21-32); CHLORIDE 99 mmol/L (98-107); CREATININE 0.5 mg/dL (0.6-1.3); GLUCOSE 103 mg/dL (74-106); SODIUM SERUM 133 mmol/L (136-145); TOTAL PROTEIN, SERUM 6.7 g/dL (6.4-8.2); UREA NITROGEN, BLOOD 6 mg/dL (7-18)
[2019-12-16 08:00] VITALS: BP 100/59
[2019-12-16 08:02] LABS: CHOLESTEROL 94 mg/dL (<200); HDL CHOLESTEROL 43 mg/dL (40-60); LDL 47 mg/dL (0-99); TRIGLYCERIDES 50 mg/dL (30-150)
[2019-12-16] MEDS: CEPHALEXIN MONOHYDRATE 500 MG CAPSULE PO SCH (08:12)
[2019-12-16] MEDS: BENZTROPINE MESYLATE (1 MG) 1 MG TABLET PO SCH ×2 (08:12→21:05)
[2019-12-16] MEDS: LORAZEPAM 1 MG TABLET PO PRN ×2 (08:12→16:27)
[2019-12-16] MEDS: DOCUSATE SODIUM 250 MG CAPSULE PO SCH ×2 (08:12→21:05)
[2019-12-16] MEDS: LITHIUM CARBONATE 150 MG CAPSULE PO SCH ×2 (08:12→16:53)
--- NOTE | 2019-12-16 08:16 | NUR ---
PRN ATIVAN GIVEN FOR ANXIETY Addendum: 12/16/19 at 1223 by DANIELA BAILEY RN PRN TYLENOL GIVEN FOR HEADACHE/ STOMACH PAIN Addendum: 12/16/19 at 1641 by DANIELA BAILEY RN PRN ATIVAN PO GIVEN FOR RESTLESSNESS AND ANXIETY
[2019-12-16] MEDS: risperiDONE 1 MG TABLET PO SCH ×5 (08:45→21:05)
[2019-12-16] MEDS: ACETAMINOPHEN 325 MG TABLET PO PRN (12:22)
[2019-12-16 16:00] VITALS: BP 100/71
[2019-12-16] MEDS: busPIRone 5 MG TABLET PO SCH (16:53)
[2019-12-16] MEDS: AMOXICILLIN TRIHYDRATE 250 MG CAPSULE PO SCH (16:53)
--- NOTE | 2019-12-16 16:56 | NUR ---
1700 RISPERDAL HELD D/T DOSE ALREADY GIVEN PRIOR TO FREQUENCY CHANGE
[2019-12-16] MEDS ORDERED: AMOXICILLIN TRIHYDRATE 500 MG CAPSULE PO SCH (17:00)
[2019-12-16 20:51] VITALS: BP 120/61
[2019-12-17] MEDS: AMOXICILLIN TRIHYDRATE 250 MG CAPSULE PO SCH ×3 (01:02→16:25)
[2019-12-17 08:00] VITALS: BP 147/69
[2019-12-17] MEDS: busPIRone 5 MG TABLET PO SCH ×3 (08:32→16:23)
[2019-12-17] MEDS: risperiDONE 1 MG TABLET PO SCH ×4 (08:33→21:06)
[2019-12-17] MEDS: LORAZEPAM 1 MG TABLET PO PRN ×3 (08:33→16:33)
[2019-12-17] MEDS: SENNOSIDES 8.6 MG TABLET PO SCH (08:33)
[2019-12-17] MEDS: LITHIUM CARBONATE 150 MG CAPSULE PO SCH ×3 (08:33→16:24)
[2019-12-17] MEDS: BENZTROPINE MESYLATE (1 MG) 1 MG TABLET PO SCH ×2 (08:34→21:06)
--- NOTE | 2019-12-17 10:32 | NUR ---
FACILITY CONTACT: ISMA spoke with Arthur, admissions manager at [facility] Address: [address] [place] [address] who stated they did not want to accept pt back due to her behavior. ISMA informed him that pt currently has 0/0/0 Medicare Days and pt has to return. Arthur stated he was unaware of pts Medicare days and stated pt could return within 7 days as pt is currently on a bed hold.
--- NOTE | 2019-12-17 10:43 | NUR ---
FAMILY CONTACT: ISMA contacted pts son Sam [phone] and discussed pts discharge and treatment plan. SW explained that pt has exhausted all of her Medicare days and that currently Medicare is not covering her hospital stay. SW explained that [facility] did not want to accept pt back due to her aggressive behavior but after SW informed them that pt has zero Medicare days they agreed to take pt back. ISMA also explained that MD has ran out of options to treat pt and at this time there is not much he can continue doing to help pt get better as pt has no motivation to get better and is fixated on her somatic complaints. 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 He states that he will talk with his siblings to see what they can do as a family to better assist pt.
--- NOTE | 2019-12-17 10:55 | NUR ---
Psychosocial Note: I, Azul Daily MEDICAL ATTENDANT, attest to the patients previous psychosocial information dated 12/06/19 Update On Events leading to Admission and Discharge Plan: Pt has returned to the hospital within 3 days of her previous discharge on 12/11/19. The current plan is to increase the patient on her medications and discharge her back to [facility] Address: [address] [place] [id number] . The pt appeared in a psychotic state; yelling, screaming, responding to internal stimuli. Pts mood is dysphoric with an irritable affect. Pt is focused on her somatic complaints of constipation, leg pain, heart pain, and stomach pain. Pt appeared to be ambulatory, well-groomed and appropriately dressed. Pts insight and judgement is impaired. SW will work with the pt and the MD regarding appropriate discharge planning. SW will form a safe and proper discharge.
--- NOTE | 2019-12-17 12:33 | NUR ---
PRN ATIVAN PO GIVEN FOR ANXIETY
[2019-12-17] MEDS: MAGNESIUM HYDROXIDE 30 ML UDC PO PRN (15:03)
[2019-12-17] MEDS: PHENAZOPYRIDINE HCL 200 MG TABLET PO PRN (15:04)
--- NOTE | 2019-12-17 15:04 | NUR ---
PRN PYRIDIUM AND MOM PO GIVEN FOR URINARY PAIN AND CONSTIPATOIN. Addendum: 12/17/19 at 1634 by DANIELA BAILEY RN PRN ATIVAN GIVEN FOR ANXIETY
[2019-12-17 16:00] VITALS: BP 126/58
[2019-12-17 20:44] VITALS: BP 139/88
[2019-12-17] MEDS: DOCUSATE SODIUM 250 MG CAPSULE PO SCH (21:06)
[2019-12-17] MEDS: ZOLPIDEM TARTRATE 5 MG TABLET PO PRN (22:15)
[2019-12-18] MEDS: AMOXICILLIN TRIHYDRATE 250 MG CAPSULE PO SCH ×3 (02:02→17:42)
[2019-12-18 08:00] VITALS: BP 138/60
[2019-12-18] MEDS: risperiDONE 1 MG TABLET PO SCH ×4 (08:19→20:31)
[2019-12-18] MEDS: LITHIUM CARBONATE 150 MG CAPSULE PO SCH ×3 (08:19→16:09)
[2019-12-18] MEDS: BENZTROPINE MESYLATE (1 MG) 1 MG TABLET PO SCH ×2 (08:19→20:31)
[2019-12-18] MEDS: SENNOSIDES 8.6 MG TABLET PO SCH (08:19)
[2019-12-18] MEDS: busPIRone 5 MG TABLET PO SCH ×3 (08:22→16:09)
--- NOTE | 2019-12-18 09:23 | NUR ---
FAMILY CONTACT: SW received a call from pts daughter Zainab [phone] stating that she wishes to take pt home. Daughter stated that she will be coming to [place] pickup pt on 12/20/19 at 12:00pm. Daughter states that she is a [employer] and [place] Pt will be discharged to daughters home [address] [facility] [address]. has given discharge orders.
[2019-12-18] MEDS: ACETAMINOPHEN 325 MG TABLET PO PRN (10:51)
[2019-12-18] MEDS: LORAZEPAM 1 MG TABLET PO PRN ×2 (15:05→22:10)
--- NOTE | 2019-12-18 15:07 | NUR ---
PRN ATIVAN GIVEN FOR ANXIETY
[2019-12-18 16:00] VITALS: BP 153/64
[2019-12-18 20:21] VITALS: BP 140/65
[2019-12-18] MEDS: DOCUSATE SODIUM 250 MG CAPSULE PO SCH (21:02)
[2019-12-19] MEDS: ZOLPIDEM TARTRATE 5 MG TABLET PO PRN (00:24)
[2019-12-19] MEDS: AMOXICILLIN TRIHYDRATE 250 MG CAPSULE PO SCH ×3 (01:30→16:31)
[2019-12-19 06:18] LABS: BASOPHILS % (AUTO) 0.2 % (0.0-2.0); EOSINOPHILS % (AUTO) 1.9 % (0.0-6.0); HEMATOCRIT 38 % (33-45); HEMOGLOBIN 12.8 g/dL (11.5-14.8); LYMPHOCYTES # (AUTO) 2.8 /CMM (0.8-4.8); LYMPHOCYTES % (AUTO) 48.6 % (20.0-44.0); MEAN CORPUSCULAR HGB CONC 34 g/dl (31.0-36.0); MEAN CORPUSCULAR VOLUME 89 fL (82-100); MONOCYTES # (AUTO) 0.5 /CMM (0.1-1.30); NEUTROPHILS # (AUTO) 2.4 /CMM (1.8-8.9); NEUTROPHILS % (AUTO) 40.3 % (43.0-81.0); PLATELET COUNT (AUTO) 179 /CMM (150-450); RED BLOOD CELL COUNT(AUTO) 4.25 MIL/uL (4.0-5.2); WHITE BLOOD COUNT (AUTO) 5.8 K/uL (4.3-11.0)
[2019-12-19 06:41] LABS: CALCIUM, SERUM 9.7 mg/dL (8.5-10.1); CREATININE 0.7 mg/dL (0.6-1.3); MAGNESIUM 1.9 mg/dL (1.8-2.4); PHOSPHORUS 3.9 mg/dL (2.5-4.9); POTASSIUM 4.2 mmol/L (3.5-5.1)
[2019-12-19 08:00] VITALS: BP 158/74
[2019-12-19] MEDS: busPIRone 5 MG TABLET PO SCH ×3 (08:02→16:32)
[2019-12-19] MEDS: risperiDONE 1 MG TABLET PO SCH ×4 (08:02→16:31)
[2019-12-19] MEDS: SENNOSIDES 8.6 MG TABLET PO SCH (08:02)
[2019-12-19] MEDS: LITHIUM CARBONATE 150 MG CAPSULE PO SCH ×5 (08:02→21:07)
[2019-12-19] MEDS: BENZTROPINE MESYLATE (1 MG) 1 MG TABLET PO SCH ×2 (08:03→21:07)
--- NOTE | 2019-12-19 14:52 | NUR ---
FAMILY CONTACT: SW contacted pts daughter Zainab [phone] to confirm pts discharge tomorrow, daughter confirmed picker and sorter load and unload and stated she will be arriving at 10:00am.
[2019-12-19 16:00] VITALS: BP 166/87
[2019-12-19] MEDS: LORAZEPAM 1 MG TABLET PO PRN (19:37)
[2019-12-19 20:18] VITALS: BP 165/86
[2019-12-19] MEDS: DOCUSATE SODIUM 250 MG CAPSULE PO SCH (21:07)
[2019-12-20] MEDS: AMOXICILLIN TRIHYDRATE 250 MG CAPSULE PO SCH ×2 (01:14→08:38)
[2019-12-20 08:00] VITALS: BP 116/64
[2019-12-20] MEDS: LITHIUM CARBONATE 150 MG CAPSULE PO SCH ×2 (08:38→12:09)
[2019-12-20] MEDS: risperiDONE 1 MG TABLET PO SCH ×2 (08:38→12:09)
[2019-12-20] MEDS: busPIRone 5 MG TABLET PO SCH ×2 (08:38→12:09)
[2019-12-20] MEDS: SENNOSIDES 8.6 MG TABLET PO SCH (08:38)
[2019-12-20] MEDS: LORAZEPAM 1 MG TABLET PO PRN (08:38)
[2019-12-20] MEDS: BENZTROPINE MESYLATE (1 MG) 1 MG TABLET PO SCH (08:38)
--- NOTE | 2019-12-20 08:43 | NUR ---
PRN ATIVAN GIVEN FOR ANXIETY Addendum: 12/20/19 at 0847 by DANIELA BAILEY RN PRN PYRIDIUM GIVEN FOR URINARY PAIN
--- NOTE | 2019-12-20 08:45 | NUR ---
RN-CO: DR Sandy gave an order to discontinue hold and discharge patient today. Noted.
[2019-12-20] MEDS: PHENAZOPYRIDINE HCL 200 MG TABLET PO PRN (08:47)
--- NOTE | 2019-12-20 11:18 | NUR ---
DISCHARGE NOTE: Pt will be discharged at 12:00pm via private vehicle to her daughters home [address] [address]. Pts daughter Zainab [phone] will be picking pt up and transporting home. Pts mood is anxious with congruent affect. Pt denied visual/auditory hallucinations and denied suicidal/homicidal ideation. Pt was given a referral to [facility] Address: [address] [place] [address] and to the [facility] Address: [address] [place] [address] . The multidisciplinary exit care form was done, printed, signed, and given to the patient.
--- NOTE | 2019-12-20 12:20 | NUR ---
HAIRSPRING TRUING INSPECTOR NOTE: PATIENT IS A 79 YEAR OLD FEMALE DISCHARGED HOME TO [address] [address] [facility] [address]. PATIENT IS IN STABLE CONDITION. VSS. NO ACUTE DISTRESS NOTED. NO COMPLAINTS. COMPLIANT WITH MEDICATION MANAGEMENT. COOPERATIVE WITH PLAN OF CARE. PSYCHIATRIC TREATMENT PLANS MET. MEDICAL TREATMENT PLANS DEFERRED FOR CONTINUAL MONITORING. DENIES SI/HI [facility] AT THE TIME OF DISCHARGE. SKIN INTACT. EDUCATED PATIENT ABOUT AFTERCARE WITH COPY PROVIDED. RETURNED PERSONAL BELONGINGS TO PATIENT. MEDICATIONS RECONCILED WITH DR INGRAM AND DR WHITTINGTON ALONG WITH PSYCHIATRIC DISCHARGE ORDERS. DISCHARGE PAPERWORK SIGNED. FOR FOLLOW UP WITH PSYCHIATRIST [facility] [address] [facility] [address] AND [facility] [address] [address] WITHIN 1 WEEK. PATIENT LEFT THE [facility] GPS VIA PRIVATE TRANSPORT PROVIDED BY GRANDDAUGHTER AT 1215.
== END 2019-12-20 12:15 | disposition home or self-care (01) | DRG 885 ==
LOC: ER 15:59 → GPS 18:36
PROVIDERS: ADMIT Psychiatry & Neurology Psychosomatic Medicine; ATTEND Internal Medicine
DX: F25.1 Schizoaffective disorder, depressive type (principal); B95.2 Enterococcus as the cause of diseases classified elsewhere; N39.0 Urinary tract infection, site not specified; F23 Brief psychotic disorder; E78.5 Hyperlipidemia, unspecified; E11.9 Type 2 diabetes mellitus without complications; K59.00 Constipation, unspecified; I10 Essential (primary) hypertension; F60.7 Dependent personality disorder; F60.89 Other specific personality disorders; Z91.19 Patient's noncompliance with other medical treatment and regimen; Z87.440 Personal history of urinary (tract) infections
CPT/HCPCS: 36415; 80048-TC; 80053-TC; 80061-TC; 80076-TC; 80305; 81000-TC; 82962-TC; 83735-TC; 84100-TC; 85025-TC; 87081-TC; 87086-TC; 87186-TC; G0480; J3490; J7030